=== PATIENT | male | born 2000 | race Caucasian/White ===

== ENCOUNTER 2019-09-30 06:00 | Outpatient (RCR) | payer MEDICARE, MEDICAID, SELFPAY | END 2019-10-30 00:01 | LOC: AOT 06:00 | PROVIDERS: Family Provider Pediatrics; Visit Provider Pediatrics Adolescent Medicine | DX: S06.9X0D Unspecified intracranial injury without loss of consciousness, subsequent encounter (principal); X58.XXXD Exposure to other specified factors, subsequent encounter | CPT/HCPCS: 97110 ×4; 97530 ×4 ==

== ENCOUNTER 2019-09-30 06:00 | Outpatient (RCR) | payer MEDICARE, MEDICAID, SELFPAY | END 2019-10-30 00:01 | LOC: APT 06:00 | PROVIDERS: Family Provider Pediatrics; Visit Provider Internal Medicine | DX: Z87.820 Personal history of traumatic brain injury (principal) | CPT/HCPCS: 97110 ×5 ==

== ENCOUNTER 2019-10-31 06:00 | Outpatient (RCR) | payer MEDICARE, MEDICAID, SELFPAY | END 2019-11-30 23:59 | disposition home or self-care (01) | LOC: APT 06:00 | PROVIDERS: Family Provider Pediatrics; PCP Pediatrics; Visit Provider Pediatrics | DX: G81.11 Spastic hemiplegia affecting right dominant side (principal) | CPT/HCPCS: 97110; 97530 ==

== ENCOUNTER 2019-10-31 06:58 | Outpatient (RCR) | payer MEDICARE, MEDICAID, SELFPAY | END 2019-11-30 23:59 | disposition home or self-care (01) | LOC: AOT 06:58 | PROVIDERS: Family Provider Pediatrics; PCP Pediatrics; Referring Provider Pediatrics; Visit Provider Pediatrics | DX: G81.11 Spastic hemiplegia affecting right dominant side (principal) | CPT/HCPCS: 97110; 97530 ==

== ENCOUNTER 2019-12-03 14:37 | Outpatient (RCR) | payer MEDICARE, MEDICAID, SELFPAY | END 2019-12-29 23:59 | disposition home or self-care (01) | LOC: AOT 14:37 | PROVIDERS: Family Provider Pediatrics; PCP Pediatrics; Referring Provider Pediatrics; Visit Provider Pediatrics | DX: G81.11 Spastic hemiplegia affecting right dominant side (principal) | CPT/HCPCS: 97110; 97168; 97530 ==

== ENCOUNTER 2019-12-03 14:42 | Outpatient (RCR) | payer MEDICARE, MEDICAID, SELFPAY | END 2019-12-29 23:59 | disposition home or self-care (01) | LOC: APT 14:42 | PROVIDERS: Family Provider Pediatrics; PCP Pediatrics; Visit Provider Pediatrics | DX: G81.11 Spastic hemiplegia affecting right dominant side (principal); Z87.820 Personal history of traumatic brain injury | CPT/HCPCS: 97110; 97164 ==

== ENCOUNTER 2019-12-30 06:00 | Outpatient (RCR) | payer MEDICARE, MEDICAID, SELFPAY | END 2020-01-29 23:59 | disposition home or self-care (01) | LOC: APT 06:00 | PROVIDERS: Family Provider Pediatrics; PCP Pediatrics; Visit Provider Pediatrics | DX: G81.11 Spastic hemiplegia affecting right dominant side (principal) | CPT/HCPCS: 97110 ==

== ENCOUNTER 2019-12-30 06:00 | Outpatient (RCR) | payer MEDICARE, MEDICAID, SELFPAY | END 2020-01-29 23:59 | disposition home or self-care (01) | LOC: AOT 06:00 | PROVIDERS: Family Provider Pediatrics; PCP Pediatrics; Referring Provider Pediatrics; Visit Provider Pediatrics | DX: G81.11 Spastic hemiplegia affecting right dominant side (principal) | CPT/HCPCS: 97110; 97530 ==

== ENCOUNTER 2020-01-30 06:00 | Outpatient (RCR) | payer MEDICARE, MEDICAID, SELFPAY | END 2020-02-28 23:59 | disposition home or self-care (01) | LOC: APT 06:00 | PROVIDERS: Family Provider Pediatrics; PCP Pediatrics; Visit Provider Pediatrics | DX: G81.11 Spastic hemiplegia affecting right dominant side (principal) | CPT/HCPCS: 97110 ==

== ENCOUNTER 2020-01-30 06:00 | Outpatient (RCR) | payer MEDICARE, MEDICAID, SELFPAY | END 2020-02-28 23:59 | disposition home or self-care (01) | LOC: AOT 06:00 | PROVIDERS: Family Provider Pediatrics; PCP Pediatrics; Referring Provider Pediatrics; Visit Provider Pediatrics | DX: G81.11 Spastic hemiplegia affecting right dominant side (principal) | CPT/HCPCS: 97530 ==

== ENCOUNTER 2020-02-29 06:00 | Outpatient (RCR) | payer MEDICARE, MEDICAID, SELFPAY | END 2020-03-30 23:59 | disposition home or self-care (01) | LOC: AOT 06:00 | PROVIDERS: Family Provider Pediatrics; PCP Pediatrics; Referring Provider Pediatrics; Visit Provider Pediatrics | DX: G81.11 Spastic hemiplegia affecting right dominant side (principal) | CPT/HCPCS: 97530 ==

== ENCOUNTER 2020-02-29 06:00 | Outpatient (RCR) | payer MEDICARE, MEDICAID, SELFPAY | END 2020-03-30 23:59 | disposition home or self-care (01) | LOC: APT 06:00 | PROVIDERS: Family Provider Pediatrics; PCP Pediatrics; Visit Provider Pediatrics | DX: G81.11 Spastic hemiplegia affecting right dominant side (principal) | CPT/HCPCS: 97110 ==

== ENCOUNTER 2020-03-31 06:00 | Outpatient (RCR) | payer MEDICARE, MEDICAID, SELFPAY | END 2020-04-29 23:59 | disposition home or self-care (01) | LOC: APT 06:00 | PROVIDERS: PCP Pediatrics; Visit Provider Pediatrics | DX: G81.11 Spastic hemiplegia affecting right dominant side (principal) | CPT/HCPCS: 97110 ==

== ENCOUNTER 2020-03-31 06:00 | Outpatient (RCR) | payer MEDICARE, MEDICAID, SELFPAY | END 2020-04-29 23:59 | disposition home or self-care (01) | LOC: AOT 06:00 | PROVIDERS: PCP Pediatrics; Visit Provider Pediatrics | DX: Z87.820 Personal history of traumatic brain injury (principal); G81.11 Spastic hemiplegia affecting right dominant side | CPT/HCPCS: 97110; 97530 ==

== ENCOUNTER 2020-04-30 | Outpatient (RCR) | payer MEDICARE, MEDICAID, SELFPAY | END 2020-05-30 23:59 | disposition home or self-care (01) | LOC: AOT | PROVIDERS: PCP Pediatrics; Visit Provider Pediatrics | DX: G81.11 Spastic hemiplegia affecting right dominant side (principal); Z87.820 Personal history of traumatic brain injury | CPT/HCPCS: 97110; 97530 ==

== ENCOUNTER 2020-04-30 00:47 | Outpatient (RCR) | payer MEDICARE, MEDICAID, SELFPAY | END 2020-05-30 23:59 | disposition home or self-care (01) | LOC: APT 00:47 | PROVIDERS: PCP Pediatrics; Visit Provider Pediatrics | DX: G81.11 Spastic hemiplegia affecting right dominant side (principal) | CPT/HCPCS: 97110 ==

== ENCOUNTER 2020-05-14 10:57 | Inpatient (IN) | payer MEDICARE, MEDICAID, SELFPAY ==
[2020-05-14 10:57] VITALS: BP 130/96; PULSE 102; RESP 18; O2SAT 100
[2020-05-14 10:58] VITALS: BMI 15.0
[2020-05-14 11:02] VITALS: BP 131/102; PULSE 122; RESP 20; TEMP 36.8; O2SAT 99
[2020-05-14 11:04] VITALS: BP 131/102; PULSE 120; RESP 18; O2SAT 99
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
[2020-05-14] MEDS: famotidine 20 mg/2 mL INJ 40 MG IVP (11:26)
[2020-05-14 11:31] LABS: Basophils % 0.2 %; Hematocrit 52.3 % (42.0-52.0); Hemoglobin 16.5 g/dL (11.7-16.6); Lymphocytes # 1.4 10^3/uL (0.8-4.8); Lymphocytes % 8.7 %; Mean Corpuscular HGB Conc 31.5 g/dL (30.0-36.0); Mean Corpuscular Hemoglobin 30.3 pg (28.0-34.0); Mean Corpuscular Volume 96.1 fL (80-94); Mean Platelet Volume 11.9 fL (7.4-10.4); Monocytes # 1.3 10^3/uL (0.2-0.9); Monocytes % 8.1 %; Neutrophils # 13.17 10^3/uL (1.8-7.7); Neutrophils % 82.6 %; Nucleated Red Blood Cells % 0 %; Platelet Count 226 10^3/cmm (130-400); Red Blood Count 5.44 10^6/uL (4.1-5.3); Red Cell Distribution Width 12.6 % (12.1-15.1); White Blood Count 15.9 10^3/uL (4.0-10.0)
[2020-05-14 11:47] LABS: Alanine Aminotransferase 15 U/L (0-41); Albumin Level 4.3 g/dL (3.5-5.2); Alkaline Phosphatase 80 IU/L (40-130); Anion Gap 14.9 (5-19); Aspartate Amino Transferase 13 U/L (0-40); Blood Urea Nitrogen 19 mg/dL (6-20); Calcium 8.9 mg/dL (8.5-10.5); Carbon Dioxide 28 mmol/L (22-29); Chloride 105 mmol/L (98-107); Globulin 2.9 g/dL (1.3-4.6); Glomerular Filtration Rate 209.9 mL/min (90-130); Glucose 133 mg/dL (65-115); Osmolality Calculated 296 mOsm/kg (285-295); Potassium 3.9 mmol/L (3.5-5.1); Sodium 144 mmol/L (136-145); Total Protein 7.2 g/dL (6.6-8.7)
[2020-05-14] MEDS: sodium chloride 0.9% 1,000 ML 999 ML IV (12:16)
[2020-05-14] MEDS: ondansetron 2 mg/ML SDV 2 mL 4 MG IVP ×2 (12:16→13:34)
[2020-05-14] MEDS: sucralfate 1 gm/10 mL Oral Liq UDC PO (13:19)
[2020-05-14] MEDS: sodium chloride 0.9% 1,000 ML 100 ML IV (14:35)
--- NOTE | 2020-05-14 14:57 | CTR_ITS ---
PROCEDURE INFORMATION: Exam: CT Abdomen And Pelvis Without Contrast Exam date and time: 05/14/2020 3:00 PM Age: 19 years old Clinical indication: Nausea and vomiting; Abdominal pain; Prior surgery; Surgery date: 6+ months; Surgery type: G-tube, spine; Additional info: Abdominal distention, intractable nausea and vomiting - PT has tbi TECHNIQUE: Imaging protocol: Computed tomography of the abdomen and pelvis without contrast. Radiation optimization: All CT scans at this facility use at least one of these dose optimization techniques: automated exposure control; mA and/or kV adjustment per patient size (includes targeted exams where dose is matched to clinical indication); or iterative reconstruction. COMPARISON: No relevant prior studies available. FINDINGS: Pleural space: Small pleural effusions. Patchy infiltrate or atelectasis left lung base. Liver: Normal. No mass. Gallbladder and bile ducts: Normal. No calcified stones. No ductal dilation. Pancreas: Normal. No ductal dilation. Spleen: Normal. No splenomegaly. Adrenals: Normal. No mass. Kidneys and ureters: Normal. No hydronephrosis. Stomach and bowel: Moderate amount of liquid in the stomach. Fluid containing loops of small bowel, nonspecific. Modest amount of stool in right colon and rectosigmoid region. No bowel dilatation or obstruction evident. Appendix: Normal small appendix. Intraperitoneal space: Unremarkable. No free air. No significant fluid collection. Vasculature: Unremarkable. No abdominal aortic aneurysm. Lymph nodes: Unremarkable. No enlarged lymph nodes. Bladder: Unremarkable as visualized. Reproductive: Unremarkable as visualized. Bones/joints: Broad thoracolumbar levoscoliosis with transpedicular screw and posterior mateusz fixation hardware in place. Some images degraded by streak artifacts arising from fixation hardware. Presumably chronically dislocated right hip. Soft tissues: Unremarkable. Other findings: Total DLP (mGy-cm): 577.94 CT/CT abdomen pelvis wo con [id number] IMPRESSION: 1.) Small pleural effusions. Patchy infiltrate or atelectasis left lung base. 2.) Moderate amount of liquid in the stomach. No bowel dilatation or obstruction evident. 3.) Prior spine surgery with fixation hardware in place. Radiation Dose CTDIVOL = (mGy): DLP = 577.94 (mGy-cm)
[2020-05-14 16:02] VITALS: BP 130/90; PULSE 82; RESP 16; TEMP 37.4; O2SAT 100
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
[2020-05-14] MEDS: pantoprazole 40 mg SDV IVP (16:53)
[2020-05-14] MEDS: enoxaparin 30 mg/0.3 mL Syringe SUBCUT (16:53)
[2020-05-14] MEDS: Fleet Enema 133 mL Enema PR (16:53)
[2020-05-14 17:11] VITALS: BP 130/98; PULSE 102; RESP 18; TEMP 37.2; O2SAT 98
[2020-05-14] MEDS: LORazepam 2 mg/mL INJ 1 mL 1 MG IVP (17:41)
--- NOTE | 2020-05-14 17:42 | PC.NURSE ---
patient spitting up black sputum. patient gets hiccups and then spits up. suction set up. teaching done with dad and dad is at bedside.
--- NOTE | 2020-05-14 18:26 | PC.NURSE ---
Signed consent in file for EGD
[2020-05-14 20:00] VITALS: BP 121/86; PULSE 100; RESP 18; TEMP 37.6; O2SAT 94
[2020-05-15] VITALS (13 sets, daily range): BP systolic 121–136; BP diastolic 57–94; PULSE 104–129; RESP 18–26; TEMP 36.9–37.9; O2SAT 90–99
[2020-05-15] MEDS: ondansetron 2 mg/ML SDV 2 mL 4 MG IVP (00:03)
[2020-05-15] MEDS: sodium chloride 0.9% 1,000 ML 30 ML IV ×2 (00:04→10:45)
[2020-05-15 03:32] LABS: Basophils % 0.2 %; Eosinophils % 0.3 %; Hematocrit 42.4 % (42.0-52.0); Hemoglobin 13.5 g/dL (11.7-16.6); Lymphocytes # 2.2 10^3/uL (0.8-4.8); Lymphocytes % 19.3 %; Mean Corpuscular HGB Conc 31.8 g/dL (30.0-36.0); Mean Corpuscular Volume 97.5 fL (80-94); Mean Platelet Volume 12.2 fL (7.4-10.4); Monocytes # 1.1 10^3/uL (0.2-0.9); Monocytes % 9.2 %; Neutrophils # 8.18 10^3/uL (1.8-7.7); Neutrophils % 70.7 %; Nucleated Red Blood Cells % 0 %; Platelet Count 254 10^3/cmm (130-400); Red Blood Count 4.35 10^6/uL (4.1-5.3); Red Cell Distribution Width 12.7 % (12.1-15.1); White Blood Count 11.6 10^3/uL (4.0-10.0)
[2020-05-15 03:35] LABS: Anion Gap 12.8 (5-19); Blood Urea Nitrogen 10 mg/dL (6-20); Calcium 8.1 mg/dL (8.5-10.5); Carbon Dioxide 26 mmol/L (22-29); Chloride 111 mmol/L (98-107); Glomerular Filtration Rate 378.5 mL/min (90-130); Glucose 113 mg/dL (65-115); Osmolality Calculated 299 mOsm/kg (285-295); Potassium 3.8 mmol/L (3.5-5.1); Sodium 146 mmol/L (136-145)
[2020-05-15] MEDS: pantoprazole 40 mg SDV IVP ×2 (05:03→15:32)
[2020-05-15] MEDS: LORazepam 2 mg/mL INJ 1 mL 1 MG IVP ×2 (08:43→17:57)
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
--- NOTE | 2020-05-15 09:47 | PM.CONSULT ---
Providers/Reason For Consult Consulting Physican/Specialty*: Dr. Davila Reason for Consult*: Coffee-ground emesis, melena Attending Physician: Jennifer Davila MD Primary Care Provider: Tasha Leyva MD History of Present Illness History of Present Illness Marvel Sharp is a 19 year old male, quadriplegic with seizure disorders who was brought in by his father for nausea vomiting and coffee-ground emesis for the last couple of days. Patient states that he has had similar episodes in the past and his last EGD was done at [facility] a few years ago when they found esophagitis. Patient does not appear to be any acute distress and denies any significant abdominal or chest pain. No melena or hematochezia. Review of Systems General: Reports: 10 or more systems reviewed and unremarkable except in HPI and below Meds/Allergies Home Medications and Allergies Home Medications Medication Instructions Recorded Confirmed Last Taken Type esomeprazole magnesium 40 mg PO BID 05/14/20 05/14/20 05/13/20 History lorazepam [Lorazepam Intensol] 2 mg PO Q6H PRN 05/14/20 05/14/20 05/13/20 History sucralfate [Carafate] See Rx Instructions .ROUTE .COMPLEX 05/14/20 05/14/20 05/13/20 History Allergies Allergy/AdvReac Type Severity Reaction Status Date / Time ibuprofen Allergy Unknown Verified 05/14/20 11:05 metoclopramide [From Reglan] Allergy Unknown Verified 05/14/20 11:05 Current Medications Current Medications Generic Name Dose Route Start Last Admin Trade Name Freq PRN Reason Stop Dose Admin Enoxaparin Sodium 30 mg 05/14/20 16:30 05/14/20 16:53 Lovenox SUBCUT 30 mg Q24H ARCENIO Administration Sodium Chloride 1,000 mls @ 30 mls/hr 05/14/20 18:00 05/15/20 00:04 Sodium Chloride 0.9% IV 30 mls/hr .Q24H ARCENIO Administration Sodium Chloride 1,000 mls @ 30 mls/hr 05/14/20 17:50 05/14/20 21:53 Sodium Chloride 0.9% IV 05/15/20 17:49 Not Given .Q24H ONE Lorazepam 1 mg 05/14/20 18:00 05/15/20 08:43 Ativan IVP 1 mg BID ARCENIO Administration Ondansetron HCl 4 mg 05/14/20 14:14 05/15/20 00:03 Zofran IVP 4 mg Q6H PRN Administration NAUSEA AND VOMITING Pantoprazole Sodium 40 mg 05/14/20 16:30 05/15/20 05:03 Protonix IVP 40 mg Q12H ARCENIO Administration Sucralfate 1 gm 05/14/20 17:00 05/15/20 06:54 Carafate Oral Liq PO Not Given AC&BEDTIME ARCENIO PFSH Acute PFSH: Medical History GERD (gastroesophageal reflux disease) Quadriplegia Seizure disorder Traumatic brain injury Surgical History History of back surgery History of gastrostomy tube placement History of tracheostomy Social History Smoking and tobacco status: never smoked Alcohol intake: never Substance/Drug Use: never Household members: family Vitals/I&O/Wt Last Vital Signs Temp 100.3 F H 05/15/20 07:37 Pulse 118 H 05/15/20 07:37 Resp 18 05/15/20 07:37 BP 129/81 05/15/20 07:37 Pulse Ox 93 05/15/20 07:37 05/14/20 05/15/20 05/15/20 22:59 06:59 14:59 Intake Total 735 / 735 Balance 735 / 735 Weight last 48 hrs Weight 116 lb 3 oz Weight 90 lb Physical Exam Narrative: EXAM NARRATIVE: HEENT: Normocephalic Eye: Sclera /conjunctiva normal Abdomen: Soft to palpation Neurological: Unable to assess Skin: Intact, no lesions appreciated on gross exam A&P Assessment and plan (1) GI bleed: 19-year-old male with quadriplegia seizure disorders who presents with coffee-ground emesis. Plan for EGD under [facility] Procedure, risks, benefits and alternatives have been discussed with the patient who wishes to proceed with surgery. Status: Acute Coding Level of Care Code Acute Manager Administration for [facility] Diagnoses GI bleed K92.2
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
[2020-05-15] MEDS: enoxaparin 30 mg/0.3 mL Syringe SUBCUT (15:32)
[2020-05-15] MEDS: nystatin 100,000 unit/mL UDC 5 mL 500000 UNIT PO (22:23)
[2020-05-16] VITALS (10 sets, daily range): BP systolic 102–128; BP diastolic 62–87; PULSE 87–114; RESP 16–18; TEMP 36.8–38.2; O2SAT 92–95
[2020-05-16] MEDS: ondansetron 2 mg/ML SDV 2 mL 4 MG IVP (03:55)
[2020-05-16] MEDS: pantoprazole 40 mg SDV IVP ×2 (03:55→16:20)
[2020-05-16 04:10] LABS: Hematocrit 38.1 % (42.0-52.0); Hemoglobin 12.1 g/dL (11.7-16.6)
[2020-05-16] MEDS: LORazepam 2 mg/mL INJ 1 mL 1 MG IVP ×2 (07:59→17:16)
[2020-05-16] MEDS: nystatin 100,000 unit/mL UDC 5 mL 500000 UNIT PO ×4 (07:59→20:52)
[2020-05-16] MEDS: sucralfate 1 gm/10 mL Oral Liq UDC PO ×4 (07:59→20:52)
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
[2020-05-16] MEDS: bisacodyl 10 mg Supp PR (09:33)
--- NOTE | 2020-05-16 10:18 | PC.CHAP ---
Pastoral Care Encounter/Spiritual Assessment Type of Contact [] Declined board machine set up operator visit [] Patient/Family/Request visit [] Outpatient visit [] Follow-up visit [] Physician referral [] Code/Alert [x] Routine visit [] Staff referral [] Actively dying [] Patient sleeping [x] Family support [] [] Out of room [] Palliative care [] [] Receiving care in room [] Pre-surgical visit [] Trauma [] Long length of stay [] ICU visit [] Other: Relational/Emotional Strength [] Patient feels connected with others/family/visitors/staff [] Distress [] Loneliness/isolation [] Abandonment Spirituality of Patient [] Person of [place] [] Attends [facility] of their [place] [] Believes in Prayer [] Reads Bible or Orthodoxy materials [] There are Spiritual issues to be addressed Laundry Bag Punch Operator Interventions [x] Prayer [x] Active listening [x] Non-anxious presence [x] Spiritual/emotional support [] Crisis/trauma care [] Spiritual counseling [] Bereavement support [] Provided bereavement packet [] Provided Bible/devotional materials [] Provided toy/stuffed animal, coloring book to patient or family member [] Provided Communion [] Anointing/[place] [] Salvation [x] Completed spiritual assessment [] Other: Impact on Illness or Injury [] Angry [] Fearful [] Anxious [] Often cries [] Exhaustion [] Unable to work [] Unable to attend jew [] Unable to walk/stand [] Unable to read [] Unable to drive [] Unable to eat/drink [] Unable to sleep [] Unable to be with family [] Patient intubated [] Other: Summary Patient handicapped. Laundry Bag Punch Operator prayed for father and son. Time spent with patient 5 min
--- NOTE | 2020-05-16 10:39 | ANE.PACU2 ---
Inpatient post-anesthesia follow up: Airway intact: Yes Vital signs: Temperature 98.7 F Pulse Rate 103 Respiratory Rate 16 Blood Pressure 124/87 Pulse Oximetry 93 Oxygen Delivery Me thod [Rate & Room Air Delivery Changed T o] Oxygen Delivery Me thod [ Room Air Current Rate & Del nash] Oxygen Delivery Me thod Room Air Oxygen Flow Rate [ Rate & 2 Delivery Changed T o] Oxygen Flow Rate 8 Fraction of Inspir ed Oxygen Hydration adequate: Yes Nausea and vomiting: No Mental status: Baseline
[2020-05-16] MEDS: enoxaparin 30 mg/0.3 mL Syringe SUBCUT (16:21)
[2020-05-17] MEDS: pantoprazole 40 mg SDV IVP (03:23)
[2020-05-17 04:00] VITALS: BP 108/73; PULSE 92; RESP 17; TEMP 37.6; O2SAT 93
[2020-05-17 07:11] VITALS: BP 123/74; PULSE 78; RESP 18; TEMP 37.9; O2SAT 94
[2020-05-17] MEDS: nystatin 100,000 unit/mL UDC 5 mL 500000 UNIT PO (09:06)
[2020-05-17] MEDS: sucralfate 1 gm/10 mL Oral Liq UDC PO (09:06)
[2020-05-17] MEDS: LORazepam 2 mg/mL INJ 1 mL 1 MG IVP (09:07)
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
[2020-05-17 12:00] VITALS: BP 118/70; PULSE 83; RESP 18; TEMP 37.3; O2SAT 94
[2020-05-17 13:58] VITALS: BP 118/70; PULSE 83; RESP 18; TEMP 37.3; O2SAT 94
--- NOTE | 2020-05-24 07:24 | SUR.PREOP ---
patient was in station #[id number].
== END 2020-05-17 14:00 | disposition home or self-care (01) | DRG 391 ==
LOC: ER 13:35 → MEDSURG 14:44
PROVIDERS: Emergency Medicine; Surgery; Admitting Provider Family Medicine; PCP Internal Medicine; Visit Provider Family Medicine
PROC: 0DJ08ZZ Inspection of Upper Intestinal Tract, Via Natural or Artificial Opening Endoscopic (ICD-10-PCS; CPT 43235; 2020-05-15 10:40)
DX: K20.9 Esophagitis, unspecified (principal); G82.50 Quadriplegia, unspecified; K92.2 Gastrointestinal hemorrhage, unspecified; K92.0 Hematemesis; G40.909 Epilepsy, unspecified, not intractable, without status epilepticus; Z87.820 Personal history of traumatic brain injury
CPT/HCPCS: 12345; 36415; 43235; 74176; 80048; 80053; 85014; 85018; 85025; 96372; 96375; 99283; C9113; G0378; J1650; J2060; J2405; J2704; J3490; J7030

== ENCOUNTER 2020-05-31 06:00 | Outpatient (RCR) | payer MEDICARE, MEDICAID, SELFPAY | END 2020-06-30 23:59 | disposition home or self-care (01) | LOC: APT 06:00 | PROVIDERS: PCP Internal Medicine; Visit Provider Internal Medicine | DX: G81.11 Spastic hemiplegia affecting right dominant side (principal) | CPT/HCPCS: 97110 ==

== ENCOUNTER 2020-05-31 06:00 | Outpatient (RCR) | payer MEDICARE, MEDICAID, SELFPAY | END 2020-06-30 23:59 | disposition home or self-care (01) | LOC: AOT 06:00 | PROVIDERS: PCP Internal Medicine; Visit Provider Pediatrics | DX: G81.11 Spastic hemiplegia affecting right dominant side (principal) | CPT/HCPCS: 97110; 97530 ==

== ENCOUNTER 2020-07-01 06:00 | Outpatient (RCR) | payer MEDICARE, MEDICAID, SELFPAY | END 2020-07-30 23:59 | disposition home or self-care (01) | LOC: AOT 06:00 | PROVIDERS: PCP Internal Medicine; Visit Provider Pediatrics | DX: G81.11 Spastic hemiplegia affecting right dominant side (principal) | CPT/HCPCS: 97110; 97530 ==

== ENCOUNTER 2020-07-01 06:00 | Outpatient (RCR) | payer MEDICARE, MEDICAID, SELFPAY | END 2020-07-30 23:59 | disposition home or self-care (01) | LOC: APT 06:00 | PROVIDERS: PCP Internal Medicine; Visit Provider Internal Medicine | DX: G81.11 Spastic hemiplegia affecting right dominant side (principal) | CPT/HCPCS: 97110 ==

== ENCOUNTER → 2020-07-17 12:28 | Outpatient (BNVA) | payer MEDICARE, MEDICAID, SELFPAY | PROVIDERS: PCP Internal Medicine; Referring Provider Internal Medicine; Visit Provider Specialist | DX: G81.11 Spastic hemiplegia affecting right dominant side (principal); F06.8 Other specified mental disorders due to known physiological condition; F01.51 Vascular dementia, unspecified severity, with behavioral disturbance | CPT/HCPCS: 64644; 99204; J0585 ==

== ENCOUNTER 2020-07-31 06:00 | Outpatient (RCR) | payer MEDICARE, MEDICAID, SELFPAY | END 2020-08-30 23:59 | disposition home or self-care (01) | LOC: APT 06:00 | PROVIDERS: PCP Internal Medicine; Visit Provider Internal Medicine | DX: G81.11 Spastic hemiplegia affecting right dominant side (principal) | CPT/HCPCS: 97110 ==

== ENCOUNTER 2020-07-31 06:00 | Outpatient (RCR) | payer MEDICARE, MEDICAID, SELFPAY | END 2020-08-30 23:59 | disposition home or self-care (01) | LOC: AOT 06:00 | PROVIDERS: PCP Internal Medicine; Visit Provider Internal Medicine | DX: G81.11 Spastic hemiplegia affecting right dominant side (principal) | CPT/HCPCS: 97110; 97530 ==

== ENCOUNTER 2020-08-31 06:00 | Outpatient (RCR) | payer MEDICARE, MEDICAID, SELFPAY | END 2020-09-29 23:59 | disposition home or self-care (01) | LOC: APT 06:00 | PROVIDERS: PCP Internal Medicine; Visit Provider Internal Medicine | DX: G81.11 Spastic hemiplegia affecting right dominant side (principal) | CPT/HCPCS: 97110 ==

== ENCOUNTER 2020-08-31 06:00 | Outpatient (RCR) | payer MEDICARE, MEDICAID, SELFPAY | END 2020-09-29 23:59 | disposition home or self-care (01) | LOC: AOT 06:00 | PROVIDERS: PCP Internal Medicine; Visit Provider Internal Medicine | DX: G81.11 Spastic hemiplegia affecting right dominant side (principal) | CPT/HCPCS: 97110; 97530 ==

== ENCOUNTER 2020-09-30 06:00 | Outpatient (RCR) | payer MEDICARE, MEDICAID, SELFPAY | END 2020-10-30 23:59 | disposition home or self-care (01) | LOC: AOT 06:00 | PROVIDERS: PCP Internal Medicine; Visit Provider Internal Medicine | DX: G81.11 Spastic hemiplegia affecting right dominant side (principal) | CPT/HCPCS: 97110; 97530 ==

== ENCOUNTER 2020-09-30 06:00 | Outpatient (RCR) | payer MEDICARE, MEDICAID, SELFPAY | END 2020-10-30 23:59 | disposition home or self-care (01) | LOC: APT 06:00 | PROVIDERS: PCP Internal Medicine; Visit Provider Internal Medicine | DX: G81.11 Spastic hemiplegia affecting right dominant side (principal) | CPT/HCPCS: 97110; 97164 ==

== ENCOUNTER → 2020-10-09 12:08 | Outpatient (BNVA) | payer MEDICARE, MEDICAID, SELFPAY | PROVIDERS: PCP Internal Medicine; Visit Provider Specialist | DX: G81.11 Spastic hemiplegia affecting right dominant side (principal); S06.9X9S Unspecified intracranial injury with loss of consciousness of unspecified duration, sequela; Y93.9 Activity, unspecified; F01.51 Vascular dementia, unspecified severity, with behavioral disturbance | CPT/HCPCS: 64642; 64643; J0585 ==

== ENCOUNTER 2020-10-31 06:00 | Outpatient (RCR) | payer MEDICARE, MEDICAID, SELFPAY | END 2020-11-30 23:59 | disposition home or self-care (01) | LOC: AOT 06:00 | PROVIDERS: PCP Internal Medicine; Visit Provider Internal Medicine | DX: Z87.820 Personal history of traumatic brain injury (principal) | CPT/HCPCS: 97110; 97530 ==

== ENCOUNTER 2020-11-03 09:38 | Outpatient (RCR) | payer MEDICARE, MEDICAID, SELFPAY | END 2020-11-30 23:59 | disposition home or self-care (01) | LOC: APT 09:38 | PROVIDERS: PCP Internal Medicine; Visit Provider Internal Medicine | DX: G81.11 Spastic hemiplegia affecting right dominant side (principal) | CPT/HCPCS: 97110 ==

== ENCOUNTER 2020-12-01 06:00 | Outpatient (RCR) | payer MEDICARE, MEDICAID, SELFPAY | END 2020-12-28 23:59 | disposition home or self-care (01) | LOC: AOT 06:00 | PROVIDERS: PCP Internal Medicine; Visit Provider Internal Medicine | DX: Z87.820 Personal history of traumatic brain injury (principal) | CPT/HCPCS: 97110; 97168; 97530 ==

== ENCOUNTER 2020-12-01 06:00 | Outpatient (RCR) | payer MEDICARE, MEDICAID, SELFPAY | END 2020-12-28 23:59 | disposition home or self-care (01) | LOC: APT 06:00 | PROVIDERS: PCP Internal Medicine; Visit Provider Internal Medicine | DX: G81.11 Spastic hemiplegia affecting right dominant side (principal) | CPT/HCPCS: 97110 ==

== ENCOUNTER 2020-12-29 06:00 | Outpatient (RCR) | payer MEDICARE, MEDICAID, SELFPAY | END 2021-01-28 23:59 | disposition home or self-care (01) | LOC: APT 06:00 | PROVIDERS: PCP Internal Medicine; Visit Provider Internal Medicine | DX: G81.11 Spastic hemiplegia affecting right dominant side (principal) | CPT/HCPCS: 97110 ==

== ENCOUNTER 2020-12-29 06:00 | Outpatient (RCR) | payer MEDICARE, MEDICAID, SELFPAY | END 2021-01-28 23:59 | disposition home or self-care (01) | LOC: AOT 06:00 | PROVIDERS: PCP Internal Medicine; Visit Provider Internal Medicine | DX: G81.11 Spastic hemiplegia affecting right dominant side (principal); S06.9X0S Unspecified intracranial injury without loss of consciousness, sequela; X58.XXXS Exposure to other specified factors, sequela | CPT/HCPCS: 97110; 97530 ==

== ENCOUNTER → 2021-01-08 09:53 | Outpatient (BNVA) | payer MEDICARE, MEDICAID, SELFPAY | PROVIDERS: PCP Internal Medicine; Visit Provider Specialist | DX: G81.11 Spastic hemiplegia affecting right dominant side (principal); S06.9X9S Unspecified intracranial injury with loss of consciousness of unspecified duration, sequela; F01.51 Vascular dementia, unspecified severity, with behavioral disturbance; Y93.9 Activity, unspecified | CPT/HCPCS: 64643; 64644; J0585 ==

== ENCOUNTER 2021-01-27 12:13 | Outpatient (CLI) | payer MEDICARE, MEDICAID, SELFPAY ==
--- NOTE | 2021-01-27 12:29 | XRR_ITS ---
PROCEDURE INFORMATION: Exam: XR Chest Exam date and time: 01/27/2021 12:31 PM Age: 20 years old Clinical indication: Cough and fever TECHNIQUE: Imaging protocol: XR of the chest Views: 2 views. COMPARISON: No relevant prior studies available. FINDINGS: Lungs: Low lung volumes are seen.. No consolidation. Pleural spaces: Unremarkable. No pleural effusion. No pneumothorax. Heart/Mediastinum: Unremarkable. No cardiomegaly. Bones/joints: Generalized osteopenia is seen. There is metallic transpedicular screws and rods throughout the dorsal and lumbar spine. XR/XR chest 2V* [id number] IMPRESSION: 1. Low lung volumes. 2. The lungs are otherwise clear. 3. Metallic orthopedic hardware seen in the dorsal and lumbar spine 4. Generalized osteopenia in the dorsal and lumbar spine.
== END 2021-01-27 12:14 | disposition home or self-care (01) ==
PROVIDERS: PCP Internal Medicine; Visit Provider Nurse Practitioner Family
DX: R50.9 Fever, unspecified (principal); R05 Cough; M85.88 Other specified disorders of bone density and structure, other site
CPT/HCPCS: 71046; 87086

== ENCOUNTER 2021-01-29 06:00 | Outpatient (RCR) | payer MEDICARE, MEDICAID, SELFPAY | END 2021-02-27 23:59 | disposition home or self-care (01) | LOC: AOT 06:00 | PROVIDERS: PCP Internal Medicine; Visit Provider Internal Medicine | DX: Z87.820 Personal history of traumatic brain injury (principal) | CPT/HCPCS: 97110; 97530 ==

== ENCOUNTER 2021-01-29 06:00 | Outpatient (RCR) | payer MEDICARE, MEDICAID, SELFPAY | END 2021-02-27 23:59 | disposition home or self-care (01) | LOC: APT 06:00 | PROVIDERS: PCP Internal Medicine; Visit Provider Internal Medicine | DX: G81.11 Spastic hemiplegia affecting right dominant side (principal) | CPT/HCPCS: 97110 ==

== ENCOUNTER 2021-02-28 06:00 | Outpatient (RCR) | payer MEDICARE, MEDICAID, SELFPAY | END 2021-03-30 23:59 | disposition home or self-care (01) | LOC: AOT 06:00 | PROVIDERS: PCP Internal Medicine; Visit Provider Internal Medicine | DX: G81.11 Spastic hemiplegia affecting right dominant side (principal) | CPT/HCPCS: 97110; 97530 ==

== ENCOUNTER 2021-02-28 06:00 | Outpatient (RCR) | payer MEDICARE, MEDICAID, SELFPAY | END 2021-03-30 23:59 | disposition home or self-care (01) | LOC: APT 06:00 | PROVIDERS: PCP Internal Medicine; Visit Provider Internal Medicine | DX: G81.11 Spastic hemiplegia affecting right dominant side (principal) | CPT/HCPCS: 97110 ==

== ENCOUNTER 2021-03-31 06:00 | Outpatient (RCR) | payer MEDICARE, MEDICAID, SELFPAY | END 2021-04-29 23:59 | disposition home or self-care (01) | LOC: AOT 06:00 | PROVIDERS: PCP Internal Medicine; Visit Provider Internal Medicine | DX: G81.11 Spastic hemiplegia affecting right dominant side (principal); Z87.820 Personal history of traumatic brain injury | CPT/HCPCS: 97110; 97140; 97530 ==

== ENCOUNTER 2021-03-31 06:00 | Outpatient (RCR) | payer MEDICARE, MEDICAID, SELFPAY | END 2021-04-29 23:59 | disposition home or self-care (01) | LOC: APT 06:00 | PROVIDERS: PCP Internal Medicine; Visit Provider Internal Medicine | DX: G81.11 Spastic hemiplegia affecting right dominant side (principal) | CPT/HCPCS: 97110 ==

== ENCOUNTER → 2021-04-02 10:08 | Outpatient (BNVA) | payer MEDICARE, MEDICAID, SELFPAY | PROVIDERS: PCP Internal Medicine; Visit Provider Specialist | DX: S06.9X9S Unspecified intracranial injury with loss of consciousness of unspecified duration, sequela (principal); Y93.9 Activity, unspecified; G81.11 Spastic hemiplegia affecting right dominant side; F01.51 Vascular dementia, unspecified severity, with behavioral disturbance; G40.309 Generalized idiopathic epilepsy and epileptic syndromes, not intractable, without status epilepticus | CPT/HCPCS: 64642; 99214; J0585 ==

== ENCOUNTER 2021-04-30 06:00 | Outpatient (RCR) | payer MEDICARE, MEDICAID, SELFPAY | END 2021-05-30 23:59 | disposition home or self-care (01) | LOC: APT 06:00 | PROVIDERS: PCP Internal Medicine; Visit Provider Internal Medicine | DX: G81.11 Spastic hemiplegia affecting right dominant side (principal) | CPT/HCPCS: 97110 ==

== ENCOUNTER 2021-04-30 06:00 | Outpatient (RCR) | payer MEDICARE, MEDICAID, SELFPAY | END 2021-05-30 23:59 | disposition home or self-care (01) | LOC: AOT 06:00 | PROVIDERS: PCP Internal Medicine; Visit Provider Internal Medicine | DX: G81.11 Spastic hemiplegia affecting right dominant side (principal); Z87.820 Personal history of traumatic brain injury | CPT/HCPCS: 97110; 97530 ==

== ENCOUNTER 2021-05-31 06:00 | Outpatient (RCR) | payer MEDICARE, MEDICAID, SELFPAY | END 2021-06-30 23:59 | disposition home or self-care (01) | LOC: APT 06:00 | PROVIDERS: PCP Internal Medicine; Visit Provider Internal Medicine | DX: G81.11 Spastic hemiplegia affecting right dominant side (principal) | CPT/HCPCS: 97110 ==

== ENCOUNTER 2021-05-31 06:00 | Outpatient (RCR) | payer MEDICARE, MEDICAID, SELFPAY | END 2021-06-30 23:59 | disposition home or self-care (01) | LOC: AOT 06:00 | PROVIDERS: PCP Internal Medicine; Visit Provider Internal Medicine | DX: G81.11 Spastic hemiplegia affecting right dominant side (principal) | CPT/HCPCS: 97110; 97530 ==

== ENCOUNTER 2021-07-01 06:00 | Outpatient (RCR) | payer MEDICARE, MEDICAID, SELFPAY | END 2021-07-30 23:59 | disposition home or self-care (01) | LOC: APT 06:00 | PROVIDERS: PCP Internal Medicine; Visit Provider Internal Medicine | DX: G81.11 Spastic hemiplegia affecting right dominant side (principal) | CPT/HCPCS: 97110 ==

== ENCOUNTER 2021-07-01 06:00 | Outpatient (RCR) | payer MEDICARE, MEDICAID, SELFPAY | END 2021-07-30 23:59 | disposition home or self-care (01) | LOC: AOT 06:00 | PROVIDERS: PCP Internal Medicine; Visit Provider Internal Medicine | DX: G81.11 Spastic hemiplegia affecting right dominant side (principal) | CPT/HCPCS: 97110; 97530 ==

== ENCOUNTER → 2021-07-02 08:52 | Outpatient (BNVA) | payer MEDICARE, MEDICAID, SELFPAY | PROVIDERS: PCP Internal Medicine; Visit Provider Specialist | DX: G81.11 Spastic hemiplegia affecting right dominant side (principal); S06.9X9S Unspecified intracranial injury with loss of consciousness of unspecified duration, sequela; F01.51 Vascular dementia, unspecified severity, with behavioral disturbance | CPT/HCPCS: 64644; J0585 ==

== ENCOUNTER 2021-07-31 06:00 | Outpatient (RCR) | payer MEDICARE, MEDICAID, SELFPAY | END 2021-08-30 23:59 | disposition home or self-care (01) | LOC: AOT 06:00 | PROVIDERS: PCP Internal Medicine; Visit Provider Internal Medicine | DX: G81.11 Spastic hemiplegia affecting right dominant side (principal) | CPT/HCPCS: 97110; 97530 ==

== ENCOUNTER 2021-07-31 06:00 | Outpatient (RCR) | payer MEDICARE, MEDICAID, SELFPAY | END 2021-08-30 23:59 | disposition home or self-care (01) | LOC: APT 06:00 | PROVIDERS: PCP Internal Medicine; Visit Provider Internal Medicine | DX: G81.11 Spastic hemiplegia affecting right dominant side (principal) | CPT/HCPCS: 97110 ==

== ENCOUNTER 2021-08-31 06:00 | Outpatient (RCR) | payer MEDICARE, MEDICAID, SELFPAY | END 2021-09-29 23:59 | disposition home or self-care (01) | LOC: AOT 06:00 | PROVIDERS: PCP Internal Medicine; Visit Provider Internal Medicine | DX: Z87.820 Personal history of traumatic brain injury (principal) | CPT/HCPCS: 97110; 97530 ==

== ENCOUNTER 2021-08-31 06:00 | Outpatient (RCR) | payer MEDICARE, MEDICAID, SELFPAY | END 2021-09-29 23:59 | disposition home or self-care (01) | LOC: APT 06:00 | PROVIDERS: PCP Internal Medicine; Visit Provider Internal Medicine | DX: G81.11 Spastic hemiplegia affecting right dominant side (principal) | CPT/HCPCS: 97110 ==

== ENCOUNTER 2021-09-30 06:00 | Outpatient (RCR) | payer MEDICARE, MEDICAID, SELFPAY | END 2021-10-30 23:59 | disposition home or self-care (01) | LOC: AOT 06:00 | PROVIDERS: PCP Internal Medicine; Visit Provider Internal Medicine | DX: G81.11 Spastic hemiplegia affecting right dominant side (principal) | CPT/HCPCS: 97110; 97530 ==

== ENCOUNTER 2021-09-30 06:00 | Outpatient (RCR) | payer MEDICARE, MEDICAID, SELFPAY | END 2021-10-30 23:59 | disposition home or self-care (01) | LOC: APT 06:00 | PROVIDERS: PCP Internal Medicine; Visit Provider Internal Medicine | DX: G81.11 Spastic hemiplegia affecting right dominant side (principal) | CPT/HCPCS: 97110 ==

== ENCOUNTER → 2021-10-08 09:10 | Outpatient (BNVA) | payer MEDICARE, MEDICAID, SELFPAY | PROVIDERS: PCP Internal Medicine; Visit Provider Specialist | DX: G81.11 Spastic hemiplegia affecting right dominant side (principal); G40.309 Generalized idiopathic epilepsy and epileptic syndromes, not intractable, without status epilepticus; S06.9X9S Unspecified intracranial injury with loss of consciousness of unspecified duration, sequela; F01.51 Vascular dementia, unspecified severity, with behavioral disturbance | CPT/HCPCS: 64644; 99213; J0585 ==

== ENCOUNTER 2021-10-31 06:00 | Outpatient (RCR) | payer MEDICARE, MEDICAID, SELFPAY | END 2021-11-30 23:59 | disposition home or self-care (01) | LOC: AOT 06:00 | PROVIDERS: PCP Internal Medicine; Visit Provider Internal Medicine | DX: S06.9X0D Unspecified intracranial injury without loss of consciousness, subsequent encounter (principal) | CPT/HCPCS: 97110; 97530 ==

== ENCOUNTER 2021-10-31 06:00 | Outpatient (RCR) | payer MEDICARE, MEDICAID, SELFPAY | END 2021-11-30 23:59 | disposition home or self-care (01) | LOC: APT 06:00 | PROVIDERS: PCP Internal Medicine; Visit Provider Internal Medicine | DX: G81.11 Spastic hemiplegia affecting right dominant side (principal) | CPT/HCPCS: 97110 ==

== ENCOUNTER 2021-12-01 06:00 | Outpatient (RCR) | payer MEDICARE, MEDICAID, SELFPAY | END 2021-12-28 23:59 | disposition home or self-care (01) | LOC: AOT 06:00 | PROVIDERS: PCP Internal Medicine; Visit Provider Internal Medicine | DX: S06.9X0S Unspecified intracranial injury without loss of consciousness, sequela (principal) | CPT/HCPCS: 97110; 97168; 97530 ==

== ENCOUNTER 2021-12-01 06:00 | Outpatient (RCR) | payer MEDICARE, MEDICAID, SELFPAY | END 2021-12-28 23:59 | disposition home or self-care (01) | LOC: APT 06:00 | PROVIDERS: PCP Internal Medicine; Visit Provider Internal Medicine | DX: G81.11 Spastic hemiplegia affecting right dominant side (principal) | CPT/HCPCS: 97110 ==

== ENCOUNTER 2021-12-29 06:00 | Outpatient (RCR) | payer MEDICARE, MEDICAID, SELFPAY | END 2022-01-28 23:59 | disposition home or self-care (01) | LOC: AOT 06:00 | PROVIDERS: PCP Internal Medicine; Visit Provider Internal Medicine | DX: S06.9X0S Unspecified intracranial injury without loss of consciousness, sequela (principal); X58.XXXS Exposure to other specified factors, sequela | CPT/HCPCS: 97110; 97530 ==

== ENCOUNTER 2021-12-29 06:00 | Outpatient (RCR) | payer MEDICARE, MEDICAID, SELFPAY | END 2022-01-28 23:59 | disposition home or self-care (01) | LOC: APT 06:00 | PROVIDERS: PCP Internal Medicine; Visit Provider Internal Medicine | DX: Z87.820 Personal history of traumatic brain injury (principal) | CPT/HCPCS: 97110 ==

== ENCOUNTER → 2021-12-31 11:00 | Outpatient (BNVA) | payer MEDICARE, MEDICAID, SELFPAY | PROVIDERS: PCP Internal Medicine; Visit Provider Specialist | DX: G81.11 Spastic hemiplegia affecting right dominant side (principal); S06.9X9S Unspecified intracranial injury with loss of consciousness of unspecified duration, sequela; F01.51 Vascular dementia, unspecified severity, with behavioral disturbance; Y93.9 Activity, unspecified | CPT/HCPCS: 64642; 64644; J0585 ==

== ENCOUNTER 2022-01-29 06:00 | Outpatient (RCR) | payer MEDICARE, MEDICAID, SELFPAY | END 2022-02-27 23:59 | disposition home or self-care (01) | LOC: AOT 06:00 | PROVIDERS: PCP Internal Medicine; Visit Provider Internal Medicine | DX: G81.11 Spastic hemiplegia affecting right dominant side (principal) | CPT/HCPCS: 97110; 97530 ==

== ENCOUNTER 2022-01-29 06:00 | Outpatient (RCR) | payer MEDICARE, MEDICAID, SELFPAY | END 2022-02-27 23:59 | disposition home or self-care (01) | LOC: APT 06:00 | PROVIDERS: PCP Internal Medicine; Visit Provider Internal Medicine | DX: G81.11 Spastic hemiplegia affecting right dominant side (principal) | CPT/HCPCS: 97110; 97530 ==

== ENCOUNTER 2022-02-28 06:00 | Outpatient (RCR) | payer MEDICARE, MEDICAID, SELFPAY | END 2022-03-30 23:59 | disposition home or self-care (01) | LOC: APT 06:00 | PROVIDERS: PCP Internal Medicine; Visit Provider Internal Medicine | DX: G81.11 Spastic hemiplegia affecting right dominant side (principal) | CPT/HCPCS: 97110 ==

== ENCOUNTER 2022-02-28 06:00 | Outpatient (RCR) | payer MEDICARE, MEDICAID, SELFPAY | END 2022-03-30 23:59 | disposition home or self-care (01) | LOC: AOT 06:00 | PROVIDERS: PCP Internal Medicine; Visit Provider Internal Medicine | DX: G81.11 Spastic hemiplegia affecting right dominant side (principal) | CPT/HCPCS: 97110; 97530 ==

== ENCOUNTER 2022-03-31 06:00 | Outpatient (RCR) | payer MEDICARE, MEDICAID, SELFPAY | END 2022-04-29 23:59 | disposition home or self-care (01) | LOC: APT 06:00 | PROVIDERS: PCP Internal Medicine; Visit Provider Internal Medicine | DX: G81.11 Spastic hemiplegia affecting right dominant side (principal) | CPT/HCPCS: 97110 ==

== ENCOUNTER 2022-03-31 06:00 | Outpatient (RCR) | payer MEDICARE, MEDICAID, SELFPAY | END 2022-04-29 23:59 | disposition home or self-care (01) | LOC: AOT 06:00 | PROVIDERS: PCP Internal Medicine; Visit Provider Internal Medicine | DX: Z87.820 Personal history of traumatic brain injury (principal) | CPT/HCPCS: 97110; 97530 ==

== ENCOUNTER → 2022-04-15 14:04 | Outpatient (BNVA) | payer MEDICARE, MEDICAID, SELFPAY | PROVIDERS: PCP Internal Medicine; Visit Provider Specialist | DX: G81.11 Spastic hemiplegia affecting right dominant side (principal); S06.9X9S Unspecified intracranial injury with loss of consciousness of unspecified duration, sequela; V89.2XXS Person injured in unspecified motor-vehicle accident, traffic, sequela | CPT/HCPCS: 64642; 64643; J0585 ==

== ENCOUNTER 2022-04-30 06:00 | Outpatient (RCR) | payer MEDICARE, MEDICAID, SELFPAY | END 2022-05-30 23:59 | disposition home or self-care (01) | LOC: APT 06:00 | PROVIDERS: PCP Internal Medicine; Visit Provider Internal Medicine | DX: G81.11 Spastic hemiplegia affecting right dominant side (principal) | CPT/HCPCS: 97110 ==

== ENCOUNTER 2022-04-30 06:00 | Outpatient (RCR) | payer MEDICARE, MEDICAID, SELFPAY | END 2022-05-30 23:59 | disposition home or self-care (01) | LOC: AOT 06:00 | PROVIDERS: PCP Internal Medicine; Visit Provider Internal Medicine | DX: Z87.820 Personal history of traumatic brain injury (principal); G81.11 Spastic hemiplegia affecting right dominant side | CPT/HCPCS: 97110; 97530 ==

== ENCOUNTER 2022-05-31 06:00 | Outpatient (RCR) | payer MEDICARE, MEDICAID, SELFPAY | END 2022-06-30 23:59 | disposition home or self-care (01) | LOC: AOT 06:00 | PROVIDERS: PCP Internal Medicine; Referring Provider Internal Medicine; Visit Provider Internal Medicine | DX: G81.11 Spastic hemiplegia affecting right dominant side (principal) | CPT/HCPCS: 97110; 97530 ==

== ENCOUNTER 2022-05-31 06:00 | Outpatient (RCR) | payer MEDICARE, MEDICAID, SELFPAY | END 2022-06-30 23:59 | disposition home or self-care (01) | LOC: APT 06:00 | PROVIDERS: PCP Internal Medicine; Referring Provider Internal Medicine; Visit Provider Internal Medicine | DX: G81.11 Spastic hemiplegia affecting right dominant side (principal) | CPT/HCPCS: 97110 ==

== ENCOUNTER 2022-07-01 06:00 | Outpatient (RCR) | payer MEDICARE, MEDICAID, SELFPAY | END 2022-07-30 23:59 | disposition home or self-care (01) | LOC: APT 06:00 | PROVIDERS: PCP Internal Medicine; Visit Provider Internal Medicine | DX: G81.11 Spastic hemiplegia affecting right dominant side (principal) | CPT/HCPCS: 97110 ==

== ENCOUNTER 2022-07-01 06:00 | Outpatient (RCR) | payer MEDICARE, MEDICAID, SELFPAY | END 2022-07-30 23:59 | disposition home or self-care (01) | LOC: AOT 06:00 | PROVIDERS: PCP Internal Medicine; Visit Provider Internal Medicine | DX: G81.11 Spastic hemiplegia affecting right dominant side (principal) | CPT/HCPCS: 97110; 97530 ==

== ENCOUNTER → 2022-07-22 15:01 | Outpatient (BNVA) | payer MEDICARE, MEDICAID, SELFPAY | PROVIDERS: PCP Internal Medicine; Visit Provider Specialist | DX: G81.11 Spastic hemiplegia affecting right dominant side (principal); F06.8 Other specified mental disorders due to known physiological condition; S06.9X0S Unspecified intracranial injury without loss of consciousness, sequela; V89.2XXS Person injured in unspecified motor-vehicle accident, traffic, sequela | CPT/HCPCS: 64642; 64643; 64644; J0585 ==

== ENCOUNTER 2022-07-31 06:00 | Outpatient (RCR) | payer MEDICARE, MEDICAID, SELFPAY | END 2022-08-30 23:59 | disposition home or self-care (01) | LOC: APT 06:00 | PROVIDERS: PCP Internal Medicine; Visit Provider Internal Medicine | DX: G81.11 Spastic hemiplegia affecting right dominant side (principal) | CPT/HCPCS: 97110 ==

== ENCOUNTER 2022-07-31 06:00 | Outpatient (RCR) | payer MEDICARE, MEDICAID, SELFPAY | END 2022-08-30 23:59 | disposition home or self-care (01) | LOC: AOT 06:00 | PROVIDERS: PCP Internal Medicine; Visit Provider Internal Medicine | DX: G81.11 Spastic hemiplegia affecting right dominant side (principal) | CPT/HCPCS: 97110; 97530 ==

== ENCOUNTER 2022-08-31 06:00 | Outpatient (RCR) | payer MEDICARE, MEDICAID, SELFPAY | END 2022-09-29 23:59 | disposition home or self-care (01) | LOC: APT 06:00 | PROVIDERS: PCP Internal Medicine; Visit Provider Internal Medicine | DX: G81.11 Spastic hemiplegia affecting right dominant side (principal); Z87.820 Personal history of traumatic brain injury | CPT/HCPCS: 97110 ==

== ENCOUNTER 2022-08-31 06:00 | Outpatient (RCR) | payer MEDICARE, MEDICAID, SELFPAY | END 2022-09-29 23:59 | disposition home or self-care (01) | LOC: AOT 06:00 | PROVIDERS: PCP Internal Medicine; Visit Provider Internal Medicine | DX: G81.11 Spastic hemiplegia affecting right dominant side (principal); S06.9XAD Unspecified intracranial injury with loss of consciousness status unknown, subsequent encounter; X58.XXXD Exposure to other specified factors, subsequent encounter | CPT/HCPCS: 97110; 97530 ==

== ENCOUNTER 2022-09-30 06:00 | Outpatient (RCR) | payer MEDICARE, MEDICAID, SELFPAY | END 2022-10-30 23:59 | disposition home or self-care (01) | LOC: APT 06:00 | PROVIDERS: PCP Internal Medicine; Visit Provider Internal Medicine | DX: G81.11 Spastic hemiplegia affecting right dominant side (principal) | CPT/HCPCS: 97110 ==

== ENCOUNTER 2022-09-30 06:00 | Outpatient (RCR) | payer MEDICARE, MEDICAID, SELFPAY | END 2022-10-30 23:59 | disposition home or self-care (01) | LOC: AOT 06:00 | PROVIDERS: PCP Internal Medicine; Visit Provider Internal Medicine | DX: G81.11 Spastic hemiplegia affecting right dominant side (principal); S06.9XAD Unspecified intracranial injury with loss of consciousness status unknown, subsequent encounter; X58.XXXD Exposure to other specified factors, subsequent encounter | CPT/HCPCS: 97110; 97530 ==

== ENCOUNTER 2022-10-01 18:11 | Emergency (ER) | payer MEDICARE, MEDICAID, SELFPAY ==
[2022-10-01 18:16] VITALS: BP 125/91; PULSE 107; RESP 18; TEMP 37.4; O2SAT 96
--- NOTE | 2022-10-01 18:36 | XRR_ITS ---
PROCEDURE INFORMATION: Exam: XR Chest Exam date and time: 10/01/2022 6:41 PM Age: 21 years old Clinical indication: Fever; Prior surgery; Surgery date: 6+ months; Surgery type: Spinal; Additional info: Fever, AMS TECHNIQUE: Imaging protocol: Radiologic exam of the chest. Views: 1 view. COMPARISON: CR XR chest 2V* [id number] 01/27/2021 12:42 PM FINDINGS: Lungs: There is near complete opacification of the left hemithorax. The right lung is clear. Lung volumes are low. Pleural spaces: No pneumothorax. Heart/Mediastinum: The cardiac silhouette is obscured. Bones/joints: There are Jovel rods in the thoracic and lumbar spine. No acute fracture. XR/XR chest 1V portable [id number] IMPRESSION: Low lung volumes with opacification of the left hemithorax. Possible atelectasis, pleural fluid, consolidation, or some combination thereof.
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
[2022-10-01 18:50] VITALS: BP 144/90; O2SAT 96
[2022-10-01 18:58] LABS: Basophils % 0.2 %; Eosinophils % 0.4 %; Hematocrit 45.1 % (42.0-52.0); Hemoglobin 14.7 g/dL (11.7-16.6); Lymphocytes # 2.7 10^3/uL (0.8-4.8); Lymphocytes % 29.9 %; Mean Corpuscular HGB Conc 32.6 g/dL (30.0-36.0); Mean Corpuscular Hemoglobin 30.7 pg (28.0-34.0); Mean Corpuscular Volume 94.2 fl (80-94); Mean Platelet Volume 12.3 fL (7.4-10.4); Monocytes # 0.5 10^3/uL (0.2-0.9); Monocytes % 5.4 %; Neutrophils # 5.83 10^3/uL (1.8-7.7); Nucleated Red Blood Cells % 0 %; Platelet Count 173 10^3/cmm (130-400); Red Blood Count 4.79 10^6/uL (4.1-5.3); Red Cell Distribution Width 12.5 % (12.1-15.1); White Blood Count 9.1 10^3/uL (4.0-10.0)
--- NOTE | 2022-10-01 19:12 | CTR_ITS ---
PROCEDURE INFORMATION: Exam: CT Chest With Contrast; Diagnostic Exam date and time: 10/01/2022 7:36 PM Age: 21 years old Clinical indication: Prior surgery; Surgery type: Jovel mateusz; Patient HX: Fever. Possible infiltrate/effusion noted on cxr. ; Additional info: L sided infiltrate/effusion. Fever TECHNIQUE: Imaging protocol: Diagnostic computed tomography of the chest with contrast. Radiation optimization: All CT scans at this facility use at least one of these dose optimization techniques: automated exposure control; mA and/or kV adjustment per patient size (includes targeted exams where dose is matched to clinical indication); or iterative reconstruction. Contrast material: OMNI 350; Contrast volume: 100 ml; Contrast route: INTRAVENOUS (IV); COMPARISON: CR (CHEST, ) 10/01/2022 6:41 PM RADIATION DOSE METRICS: Total DLP (mGy-cm): 273.45 FINDINGS: Lungs: Shallow inspiration with parenchymal crowding in both lungs. Mild atelectasis in the left lung base. The lungs are otherwise clear. No consolidation. Pleural spaces: Unremarkable. No pneumothorax. No pleural effusion. Heart: Unremarkable. No cardiomegaly. No pericardial effusion. Lymph nodes: Unremarkable. No enlarged lymph nodes. Vasculature: Unremarkable. No aortic aneurysm. Bones/joints: Scoliosis with extensive fusion hardware in the thoracic spine. No fracture identified. Soft tissues: Unremarkable. CT/CT chest w con* [id number] IMPRESSION: 1. No acute pulmonary finding. No evidence for pneumonia or pleural effusion.
[2022-10-01] MEDS: sodium chloride 0.9% 1,000 ML 999 ML IV (19:15)
[2022-10-01 19:21] LABS: Lactate (Lactic Acid level) 0.9 mmol/L (0.5-2.2)
[2022-10-01 19:22] LABS: Alanine Aminotransferase 18 U/L (0-41); Albumin Level 4.3 g/dL (3.5-5.2); Alkaline Phosphatase 76 U/L (40-130); Anion Gap 14.8 (5-19); Aspartate Amino Transferase 19 U/L (0-40); Blood Urea Nitrogen 11 mg/dL (6-20); Calcium 9.2 mg/dL (8.5-10.5); Carbon Dioxide 25 mmol/L (22-29); Chloride 103 mmol/L (98-107); Globulin 3.2 g/dL (1.3-4.6); Glomerular Filtration Rate 266.6 mL/min (90-130); Glucose 101 mg/dL (65-115); Osmolality Calculated 288 mOsm/kg (285-295); Potassium 3.8 mmol/L (3.5-5.1); Sodium 139 mmol/L (136-145); Total Bilirubin 0.5 mg/dL (0.15-1.2); Total Protein 7.5 g/dL (6.6-8.7)
[2022-10-01 19:24] LABS: Rapid Strep A Test Negative (Negative)
[2022-10-01 19:34] LABS: Valproic Acid Level 42.1 ug/mL (50-100)
[2022-10-01 19:37] LABS: Influenza A by IFA negative (Negative); Influenza B by IFA negative (Negative); SARS Covid-2 Antigen negative (Negative)
[2022-10-01] MEDS: iohexol 350 mg/mL 500 mL Btl (per mL) IV (19:39)
[2022-10-01 20:27] LABS: Add Urine Microscopic? NO; Charge for UA Resulting for Rev
[2022-10-01 20:28] LABS: Bilirubin Urine Neg (Negative); Blood Urine Neg (Negative); Glucose Urine UA Norm (Normal); Ketones Urine Negative (Negative); Leukocyte Esterase Urine Negative (Negative); Nitrate Urine Negative (Negative); Protein Urine Neg (Negative); Sulfosalicylic Acid Urine Negative (Negative); Urine Appearance Clear (CLEAR); Urine Color Yellow (Yellow); Urobilinogen Urine Norm (Negative); pH Urine 8 (5-7)
[2022-10-01 21:43] VITALS: BP 116/74; PULSE 102; RESP 18; O2SAT 96
== END 2022-10-01 21:45 | disposition home or self-care (01) ==
PROVIDERS: Emergency Provider Emergency Medicine; PCP Internal Medicine
DX: R41.82 Altered mental status, unspecified (principal); Z20.822 Contact with and (suspected) exposure to COVID-19; G82.50 Quadriplegia, unspecified; Z74.01 Bed confinement status; Z87.820 Personal history of traumatic brain injury
CPT/HCPCS: 71045; 71260; 80053; 80164; 81003; 83605; 85025; 86140; 87081; 87426; 87804; 87880; 99285; J7030; Q9967

== ENCOUNTER 2022-10-31 06:00 | Outpatient (RCR) | payer MEDICARE, MEDICAID, SELFPAY | END 2022-11-30 23:59 | disposition home or self-care (01) | LOC: APT 06:00 | PROVIDERS: PCP Internal Medicine; Visit Provider Internal Medicine | DX: G81.11 Spastic hemiplegia affecting right dominant side (principal) | CPT/HCPCS: 97110 ==

== ENCOUNTER 2022-10-31 06:00 | Outpatient (RCR) | payer MEDICARE, MEDICAID, SELFPAY | END 2022-11-30 23:59 | disposition home or self-care (01) | LOC: AOT 06:00 | PROVIDERS: PCP Internal Medicine; Visit Provider Internal Medicine | DX: G81.11 Spastic hemiplegia affecting right dominant side (principal) | CPT/HCPCS: 97110; 97140; 97530 ==

== ENCOUNTER → 2022-11-04 09:26 | Outpatient (BNVA) | payer MEDICARE, MEDICAID, SELFPAY | PROVIDERS: PCP Internal Medicine; Visit Provider Specialist | DX: G81.11 Spastic hemiplegia affecting right dominant side (principal); S06.9X9S Unspecified intracranial injury with loss of consciousness of unspecified duration, sequela; G40.309 Generalized idiopathic epilepsy and epileptic syndromes, not intractable, without status epilepticus; V89.2XXS Person injured in unspecified motor-vehicle accident, traffic, sequela | CPT/HCPCS: 64642; 64643; 64644; 95911; J0585 ==

== ENCOUNTER 2022-12-01 06:00 | Outpatient (RCR) | payer MEDICARE, MEDICAID, SELFPAY | END 2022-12-28 23:59 | disposition home or self-care (01) | LOC: APT 06:00 | PROVIDERS: PCP Internal Medicine; Visit Provider Internal Medicine | DX: G81.11 Spastic hemiplegia affecting right dominant side (principal); Z87.820 Personal history of traumatic brain injury | CPT/HCPCS: 97110 ==

== ENCOUNTER 2022-12-01 06:00 | Outpatient (RCR) | payer MEDICARE, MEDICAID, SELFPAY | END 2022-12-28 23:59 | disposition home or self-care (01) | LOC: AOT 06:00 | PROVIDERS: PCP Internal Medicine; Visit Provider Internal Medicine | DX: G81.11 Spastic hemiplegia affecting right dominant side (principal) | CPT/HCPCS: 97110; 97168; 97530 ==

== ENCOUNTER 2022-12-29 06:00 | Outpatient (RCR) | payer MEDICARE, MEDICAID, SELFPAY | END 2023-01-28 23:59 | disposition home or self-care (01) | LOC: AOT 06:00 | PROVIDERS: PCP Internal Medicine; Visit Provider Internal Medicine | DX: G81.11 Spastic hemiplegia affecting right dominant side (principal) | CPT/HCPCS: 97110; 97530 ==

== ENCOUNTER 2022-12-29 06:00 | Outpatient (RCR) | payer MEDICARE, MEDICAID, SELFPAY | END 2023-01-28 23:59 | disposition home or self-care (01) | LOC: APT 06:00 | PROVIDERS: PCP Internal Medicine; Visit Provider Internal Medicine | DX: G81.11 Spastic hemiplegia affecting right dominant side (principal); Z87.820 Personal history of traumatic brain injury | CPT/HCPCS: 97110 ==

== ENCOUNTER 2023-01-29 06:00 | Outpatient (RCR) | payer MEDICARE, MEDICAID, SELFPAY | END 2023-02-27 23:59 | disposition home or self-care (01) | LOC: APT 06:00 | PROVIDERS: PCP Internal Medicine; Visit Provider Internal Medicine | DX: G81.11 Spastic hemiplegia affecting right dominant side (principal) | CPT/HCPCS: 97110 ==

== ENCOUNTER 2023-01-29 06:00 | Outpatient (RCR) | payer MEDICARE, MEDICAID, SELFPAY | END 2023-02-27 23:59 | disposition home or self-care (01) | LOC: AOT 06:00 | PROVIDERS: PCP Internal Medicine; Visit Provider Internal Medicine | DX: G81.11 Spastic hemiplegia affecting right dominant side (principal) | CPT/HCPCS: 97110; 97530 ==

== ENCOUNTER 2023-02-28 06:00 | Outpatient (RCR) | payer MEDICARE, MEDICAID, SELFPAY | END 2023-03-30 23:59 | disposition home or self-care (01) | LOC: AOT 06:00 | PROVIDERS: PCP Internal Medicine; Visit Provider Internal Medicine | DX: G81.11 Spastic hemiplegia affecting right dominant side (principal) | CPT/HCPCS: 97110; 97530 ==

== ENCOUNTER 2023-02-28 06:00 | Outpatient (RCR) | payer MEDICARE, MEDICAID, SELFPAY | END 2023-03-30 23:59 | disposition home or self-care (01) | LOC: APT 06:00 | PROVIDERS: PCP Internal Medicine; Visit Provider Internal Medicine | DX: G81.11 Spastic hemiplegia affecting right dominant side (principal); Z87.820 Personal history of traumatic brain injury | CPT/HCPCS: 97110 ==

== ENCOUNTER → 2023-03-17 11:26 | Outpatient (BNVA) | payer MEDICARE, MEDICAID, SELFPAY | PROVIDERS: PCP Internal Medicine; Visit Provider Specialist | DX: G81.11 Spastic hemiplegia affecting right dominant side (principal); S06.9X9S Unspecified intracranial injury with loss of consciousness of unspecified duration, sequela; G40.309 Generalized idiopathic epilepsy and epileptic syndromes, not intractable, without status epilepticus; V89.2XXS Person injured in unspecified motor-vehicle accident, traffic, sequela | CPT/HCPCS: 64642; 64643; 64644; J0585 ==

== ENCOUNTER 2023-03-31 06:00 | Outpatient (RCR) | payer MEDICARE, MEDICAID, SELFPAY | END 2023-04-29 23:59 | disposition home or self-care (01) | LOC: AOT 06:00 | PROVIDERS: PCP Internal Medicine; Visit Provider Internal Medicine | DX: G81.11 Spastic hemiplegia affecting right dominant side (principal) | CPT/HCPCS: 97110; 97530 ==

== ENCOUNTER 2023-03-31 06:00 | Outpatient (RCR) | payer MEDICARE, MEDICAID, SELFPAY | END 2023-04-29 23:59 | disposition home or self-care (01) | LOC: APT 06:00 | PROVIDERS: PCP Internal Medicine; Visit Provider Internal Medicine | DX: G81.11 Spastic hemiplegia affecting right dominant side (principal) | CPT/HCPCS: 97110 ==

== ENCOUNTER 2023-04-30 06:00 | Outpatient (RCR) | payer MEDICARE, MEDICAID, SELFPAY | END 2023-05-30 23:59 | disposition home or self-care (01) | LOC: APT 06:00 | PROVIDERS: PCP Internal Medicine; Visit Provider Internal Medicine | DX: G81.11 Spastic hemiplegia affecting right dominant side (principal) | CPT/HCPCS: 97110 ==

== ENCOUNTER 2023-04-30 06:00 | Outpatient (RCR) | payer MEDICARE, MEDICAID, SELFPAY | END 2023-05-30 23:59 | disposition home or self-care (01) | LOC: AOT 06:00 | PROVIDERS: PCP Internal Medicine; Visit Provider Internal Medicine | DX: G81.11 Spastic hemiplegia affecting right dominant side (principal) | CPT/HCPCS: 97110; 97530 ==

== ENCOUNTER 2023-05-31 06:00 | Outpatient (RCR) | payer MEDICARE, MEDICAID, SELFPAY | END 2023-06-30 23:59 | disposition home or self-care (01) | LOC: AOT 06:00 | PROVIDERS: PCP Internal Medicine; Visit Provider Internal Medicine | DX: G81.11 Spastic hemiplegia affecting right dominant side (principal) | CPT/HCPCS: 97110; 97530 ==

== ENCOUNTER 2023-05-31 06:00 | Outpatient (RCR) | payer MEDICARE, MEDICAID, SELFPAY | END 2023-06-30 23:59 | disposition home or self-care (01) | LOC: APT 06:00 | PROVIDERS: PCP Internal Medicine; Visit Provider Internal Medicine | DX: G81.11 Spastic hemiplegia affecting right dominant side (principal) | CPT/HCPCS: 97110 ==

== ENCOUNTER → 2023-06-16 10:49 | Outpatient (BNVA) | payer MEDICARE, MEDICAID, SELFPAY | PROVIDERS: PCP Internal Medicine; Visit Provider Specialist | DX: F06.8 Other specified mental disorders due to known physiological condition (principal); S06.9X0S Unspecified intracranial injury without loss of consciousness, sequela; G40.309 Generalized idiopathic epilepsy and epileptic syndromes, not intractable, without status epilepticus; G81.11 Spastic hemiplegia affecting right dominant side; V89.2XXS Person injured in unspecified motor-vehicle accident, traffic, sequela | CPT/HCPCS: 64642; 64643; 64644; 99212; J0585 ==

== ENCOUNTER 2023-07-01 06:00 | Outpatient (RCR) | payer MEDICARE, MEDICAID, SELFPAY | END 2023-07-30 23:59 | disposition home or self-care (01) | LOC: AOT 06:00 | PROVIDERS: PCP Internal Medicine; Visit Provider Internal Medicine | DX: G81.11 Spastic hemiplegia affecting right dominant side (principal); Z87.820 Personal history of traumatic brain injury | CPT/HCPCS: 97110; 97530 ==

== ENCOUNTER 2023-07-01 06:00 | Outpatient (RCR) | payer MEDICARE, MEDICAID, SELFPAY | END 2023-07-30 23:59 | disposition home or self-care (01) | LOC: APT 06:00 | PROVIDERS: PCP Internal Medicine; Visit Provider Internal Medicine | DX: G81.11 Spastic hemiplegia affecting right dominant side (principal) | CPT/HCPCS: 97110 ==

== ENCOUNTER 2023-07-31 06:00 | Outpatient (RCR) | payer MEDICARE, MEDICAID, SELFPAY | END 2023-08-30 23:59 | disposition home or self-care (01) | LOC: AOT 06:00 | PROVIDERS: PCP Internal Medicine; Visit Provider Internal Medicine | DX: G81.11 Spastic hemiplegia affecting right dominant side (principal) | CPT/HCPCS: 97110; 97530 ==

== ENCOUNTER 2023-07-31 06:00 | Outpatient (RCR) | payer MEDICARE, MEDICAID, SELFPAY | END 2023-08-30 23:59 | disposition home or self-care (01) | LOC: APT 06:00 | PROVIDERS: PCP Internal Medicine; Visit Provider Internal Medicine | DX: G81.11 Spastic hemiplegia affecting right dominant side (principal) | CPT/HCPCS: 97110 ==

== ENCOUNTER 2023-08-31 06:00 | Outpatient (RCR) | payer MEDICARE, MEDICAID, SELFPAY | END 2023-09-29 23:59 | disposition home or self-care (01) | LOC: AOT 06:00 | PROVIDERS: PCP Internal Medicine; Visit Provider Internal Medicine | DX: G81.11 Spastic hemiplegia affecting right dominant side (principal) | CPT/HCPCS: 97110; 97530 ==

== ENCOUNTER 2023-08-31 06:00 | Outpatient (RCR) | payer MEDICARE, MEDICAID, SELFPAY | END 2023-09-29 23:59 | disposition home or self-care (01) | LOC: APT 06:00 | PROVIDERS: PCP Internal Medicine; Visit Provider Internal Medicine | DX: G81.11 Spastic hemiplegia affecting right dominant side (principal); Z87.820 Personal history of traumatic brain injury | CPT/HCPCS: 97110 ==

== ENCOUNTER → 2023-09-15 11:10 | Outpatient (BNVA) | payer MEDICARE, MEDICAID, SELFPAY | PROVIDERS: PCP Internal Medicine; Visit Provider Specialist | DX: G81.11 Spastic hemiplegia affecting right dominant side (principal); G40.309 Generalized idiopathic epilepsy and epileptic syndromes, not intractable, without status epilepticus | CPT/HCPCS: 64644; J0585 ==

== ENCOUNTER 2023-09-30 06:00 | Outpatient (RCR) | payer MEDICARE, MEDICAID, SELFPAY | END 2023-10-30 23:59 | disposition home or self-care (01) | LOC: AOT 06:00 | PROVIDERS: PCP Internal Medicine; Visit Provider Internal Medicine | DX: S06.9XAD Unspecified intracranial injury with loss of consciousness status unknown, subsequent encounter (principal); X58.XXXD Exposure to other specified factors, subsequent encounter | CPT/HCPCS: 97110; 97530 ==

== ENCOUNTER 2023-09-30 06:00 | Outpatient (RCR) | payer MEDICARE, MEDICAID, SELFPAY | END 2023-10-30 23:59 | disposition home or self-care (01) | LOC: APT 06:00 | PROVIDERS: PCP Internal Medicine; Visit Provider Internal Medicine | DX: G81.11 Spastic hemiplegia affecting right dominant side (principal); S06.9XAD Unspecified intracranial injury with loss of consciousness status unknown, subsequent encounter; X58.XXXD Exposure to other specified factors, subsequent encounter | CPT/HCPCS: 97110; 97530 ==

== ENCOUNTER 2023-10-31 06:00 | Outpatient (RCR) | payer MEDICARE, MEDICAID, SELFPAY | END 2023-11-30 23:59 | disposition home or self-care (01) | LOC: APT 06:00 | PROVIDERS: PCP Internal Medicine; Visit Provider Internal Medicine | DX: G81.11 Spastic hemiplegia affecting right dominant side (principal) | CPT/HCPCS: 97110 ==

== ENCOUNTER 2023-12-01 06:00 | Outpatient (RCR) | payer MEDICARE, MEDICAID, SELFPAY | END 2023-12-29 23:59 | disposition home or self-care (01) | LOC: AOT 06:00 | PROVIDERS: PCP Internal Medicine; Visit Provider Internal Medicine | DX: S06.9XAD Unspecified intracranial injury with loss of consciousness status unknown, subsequent encounter (principal); X58.XXXD Exposure to other specified factors, subsequent encounter | CPT/HCPCS: 97110; 97530 ==

== ENCOUNTER 2023-12-01 06:00 | Outpatient (RCR) | payer MEDICARE, MEDICAID, SELFPAY | END 2023-12-29 23:59 | disposition home or self-care (01) | LOC: APT 06:00 | PROVIDERS: PCP Internal Medicine; Visit Provider Internal Medicine | DX: G81.11 Spastic hemiplegia affecting right dominant side (principal) | CPT/HCPCS: 97110 ==

== ENCOUNTER → 2023-12-22 10:46 | Outpatient (BNVA) | payer MEDICARE, MEDICAID, SELFPAY | PROVIDERS: PCP Internal Medicine; Visit Provider Specialist | DX: G81.11 Spastic hemiplegia affecting right dominant side (principal) | CPT/HCPCS: 64644; J0585 ==

== ENCOUNTER 2023-12-30 06:00 | Outpatient (RCR) | payer MEDICARE, MEDICAID, SELFPAY | END 2024-01-29 23:59 | disposition home or self-care (01) | LOC: AOT 06:00 | PROVIDERS: PCP Internal Medicine; Visit Provider Internal Medicine | DX: S06.9XAD Unspecified intracranial injury with loss of consciousness status unknown, subsequent encounter (principal); X58.XXXD Exposure to other specified factors, subsequent encounter | CPT/HCPCS: 97110; 97530 ==

== ENCOUNTER 2023-12-30 06:00 | Outpatient (RCR) | payer MEDICARE, MEDICAID, SELFPAY | END 2024-01-29 23:59 | disposition home or self-care (01) | LOC: APT 06:00 | PROVIDERS: PCP Internal Medicine; Visit Provider Internal Medicine | DX: G81.11 Spastic hemiplegia affecting right dominant side (principal); S06.9XAD Unspecified intracranial injury with loss of consciousness status unknown, subsequent encounter; X58.XXXD Exposure to other specified factors, subsequent encounter | CPT/HCPCS: 97110; 97530 ==

== ENCOUNTER 2024-01-30 06:00 | Outpatient (RCR) | payer MEDICARE, MEDICAID, SELFPAY | END 2024-02-28 23:59 | disposition home or self-care (01) | LOC: APT 06:00 | PROVIDERS: PCP Internal Medicine; Visit Provider Internal Medicine | DX: G81.11 Spastic hemiplegia affecting right dominant side (principal) | CPT/HCPCS: 97110 ==

== ENCOUNTER 2024-01-30 06:00 | Outpatient (RCR) | payer MEDICARE, MEDICAID, SELFPAY | END 2024-02-28 23:59 | disposition home or self-care (01) | LOC: AOT 06:00 | PROVIDERS: PCP Internal Medicine; Visit Provider Internal Medicine | DX: S06.9XAD Unspecified intracranial injury with loss of consciousness status unknown, subsequent encounter (principal); X58.XXXD Exposure to other specified factors, subsequent encounter | CPT/HCPCS: 97110; 97530 ==

== ENCOUNTER 2024-02-29 06:00 | Outpatient (RCR) | payer MEDICARE, MEDICAID, SELFPAY | END 2024-03-30 23:59 | disposition home or self-care (01) | LOC: APT 06:00 | PROVIDERS: PCP Internal Medicine; Visit Provider Internal Medicine | DX: G81.11 Spastic hemiplegia affecting right dominant side (principal) | CPT/HCPCS: 97110 ==

== ENCOUNTER 2024-02-29 06:00 | Outpatient (RCR) | payer MEDICARE, MEDICAID, SELFPAY | END 2024-03-30 23:59 | disposition home or self-care (01) | LOC: AOT 06:00 | PROVIDERS: PCP Internal Medicine; Visit Provider Internal Medicine | DX: S06.9XAD Unspecified intracranial injury with loss of consciousness status unknown, subsequent encounter (principal); X58.XXXD Exposure to other specified factors, subsequent encounter | CPT/HCPCS: 97110; 97530 ==

== ENCOUNTER → 2024-03-29 11:25 | Outpatient (BNVA) | payer MEDICARE, MEDICAID, SELFPAY | PROVIDERS: PCP Internal Medicine; Visit Provider Specialist | DX: G81.10 Spastic hemiplegia affecting unspecified side (principal); M24.531 Contracture, right wrist; F06.8 Other specified mental disorders due to known physiological condition; S06.9X0S Unspecified intracranial injury without loss of consciousness, sequela; S06.9X9S Unspecified intracranial injury with loss of consciousness of unspecified duration, sequela; G40.309 Generalized idiopathic epilepsy and epileptic syndromes, not intractable, without status epilepticus; X58.XXXS Exposure to other specified factors, sequela | CPT/HCPCS: 64644; 64645; 99213; J0585 ==

== ENCOUNTER 2024-03-31 06:00 | Outpatient (RCR) | payer MEDICARE, MEDICAID, SELFPAY | END 2024-04-29 23:59 | disposition home or self-care (01) | LOC: APT 06:00 | PROVIDERS: PCP Internal Medicine; Visit Provider Internal Medicine | DX: G81.11 Spastic hemiplegia affecting right dominant side (principal) | CPT/HCPCS: 97110 ==

== ENCOUNTER 2024-04-30 06:00 | Outpatient (RCR) | payer MEDICARE, MEDICAID, SELFPAY | END 2024-05-30 23:59 | disposition home or self-care (01) | LOC: APT 06:00 | PROVIDERS: PCP Internal Medicine; Visit Provider Internal Medicine | DX: G81.11 Spastic hemiplegia affecting right dominant side (principal) | CPT/HCPCS: 97110 ==

== ENCOUNTER 2024-05-31 06:00 | Outpatient (RCR) | payer MEDICARE, MEDICAID, SELFPAY | END 2024-06-30 23:59 | disposition home or self-care (01) | LOC: SOT 06:00 | PROVIDERS: PCP Internal Medicine; Visit Provider Occupational Therapist | DX: G81.11 Spastic hemiplegia affecting right dominant side (principal) | CPT/HCPCS: 97110; 97168; 97530 ==

== ENCOUNTER 2024-05-31 06:00 | Outpatient (RCR) | payer MEDICARE, MEDICAID, SELFPAY | END 2024-06-30 23:59 | disposition home or self-care (01) | LOC: APT 06:00 | PROVIDERS: PCP Internal Medicine; Visit Provider Internal Medicine | DX: G81.11 Spastic hemiplegia affecting right dominant side (principal) | CPT/HCPCS: 97110 ==

== ENCOUNTER → 2024-06-28 13:31 | Outpatient (BNVA) | payer MEDICARE, MEDICAID, SELFPAY | PROVIDERS: PCP Internal Medicine; Visit Provider Specialist | DX: F06.8 Other specified mental disorders due to known physiological condition; S06.9X0S Unspecified intracranial injury without loss of consciousness, sequela; S06.9X9S Unspecified intracranial injury with loss of consciousness of unspecified duration, sequela; G40.309 Generalized idiopathic epilepsy and epileptic syndromes, not intractable, without status epilepticus; M24.531 Contracture, right wrist; G81.11 Spastic hemiplegia affecting right dominant side; X58.XXXS Exposure to other specified factors, sequela | CPT/HCPCS: 64644; J0585 ==

== ENCOUNTER 2024-07-01 06:00 | Outpatient (RCR) | payer MEDICARE, MEDICAID, SELFPAY | END 2024-07-30 23:59 | disposition home or self-care (01) | LOC: SPO 06:00 | PROVIDERS: PCP Internal Medicine; Visit Provider Internal Medicine | DX: G81.11 Spastic hemiplegia affecting right dominant side (principal) | CPT/HCPCS: 97110; 97530 ==

== ENCOUNTER 2024-07-31 06:00 | Outpatient (RCR) | payer MEDICARE, MEDICAID, SELFPAY | END 2024-08-30 23:59 | disposition home or self-care (01) | LOC: SPO 06:00 | PROVIDERS: PCP Internal Medicine; Visit Provider Internal Medicine | DX: G81.11 Spastic hemiplegia affecting right dominant side (principal) | CPT/HCPCS: 97110; 97530 ==

== ENCOUNTER 2024-08-31 06:00 | Outpatient (RCR) | payer MEDICARE, MEDICAID, SELFPAY | END 2024-09-29 23:59 | disposition home or self-care (01) | LOC: SPO 06:00 | PROVIDERS: PCP Internal Medicine; Visit Provider Internal Medicine | DX: G81.11 Spastic hemiplegia affecting right dominant side (principal) | CPT/HCPCS: 97110; 97530 ==

== ENCOUNTER 2024-09-30 06:00 | Outpatient (RCR) | payer MEDICARE, MEDICAID, SELFPAY | END 2024-10-30 23:59 | disposition home or self-care (01) | LOC: SPO 06:00 | PROVIDERS: PCP Internal Medicine; Visit Provider Internal Medicine | DX: G81.11 Spastic hemiplegia affecting right dominant side (principal) | CPT/HCPCS: 97110; 97530 ==

== ENCOUNTER → 2024-10-05 14:00 | Outpatient (BNVA) | payer MEDICARE, MEDICAID, SELFPAY | PROVIDERS: PCP Internal Medicine; Visit Provider Specialist | DX: G81.11 Spastic hemiplegia affecting right dominant side; F06.8 Other specified mental disorders due to known physiological condition; S06.9X0S Unspecified intracranial injury without loss of consciousness, sequela; S06.9X9S Unspecified intracranial injury with loss of consciousness of unspecified duration, sequela; X58.XXXS Exposure to other specified factors, sequela; G40.309 Generalized idiopathic epilepsy and epileptic syndromes, not intractable, without status epilepticus; M24.531 Contracture, right wrist | CPT/HCPCS: 64644; J0585 ==

== ENCOUNTER 2024-10-31 06:00 | Outpatient (RCR) | payer MEDICARE, MEDICAID, SELFPAY | END 2024-11-30 23:59 | disposition home or self-care (01) | LOC: SPO 06:00 | PROVIDERS: PCP Internal Medicine; Visit Provider Internal Medicine | DX: G81.11 Spastic hemiplegia affecting right dominant side (principal) | CPT/HCPCS: 97110; 97530 ==

== ENCOUNTER 2024-11-20 18:59 | Inpatient (IN) | payer MEDICARE, MEDICAID, SELFPAY ==
[2024-11-20 18:59] VITALS: BP 138/72; PULSE 119; RESP 18; TEMP 38.5; O2SAT 94
--- NOTE | 2024-11-20 19:04 | XRR_ITS ---
PROCEDURE INFORMATION: Exam: XR Chest Exam date and time: 11/20/2024 7:33 PM Age: 23 years old Clinical indication: Other: Weakness; Prior surgery; Surgery date: 6+ months; Surgery type: Spine TECHNIQUE: Imaging protocol: Radiologic exam of the chest. Views: 1 view. COMPARISON: CT chest w con* [id number] 10/01/2022 7:36 PM FINDINGS: Lungs: No focal consolidation. Pleural spaces: Unremarkable. No pleural effusion. No pneumothorax. Heart/Mediastinum: Unremarkable. No cardiomegaly. Bones/joints: Partially visualized fusion hardware extending from the upper thoracic spine inferiorly off the field of view. XR/XR chest 1V portable [id number] IMPRESSION: No focal consolidation.
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
[2024-11-20] MEDS: acetaminophen 1,000 MG/100 ML PIGGYBACK 400 MG IV (19:18)
[2024-11-20 19:35] LABS: Basophils % 0.1 %; Eosinophils % 0.1 %; Hematocrit 47.2 % (37-53); Lymphocytes # 1.5 10^3/uL (0.8-4.8); Lymphocytes % 9.2 %; Mean Corpuscular HGB Conc 30.7 g/dL (30-55); Mean Corpuscular Hemoglobin 29.6 pg (27-33); Mean Corpuscular Volume 96.3 fl (82-101); Mean Platelet Volume 12.3 fL (7.4-10.4); Monocytes # 0.9 10^3/uL (0.2-0.9); Monocytes % 5.5 %; Neutrophils # 13.63 10^3/uL (1.8-7.7); Neutrophils % 84.9 %; Nucleated Red Blood Cells % 0 %; Platelet Count 200 10^3/cmm (157-399); Red Cell Distribution Width 12.8 % (12.1-15.1); White Blood Count 16.06 10^3/uL (3.29-11.43)
[2024-11-20 19:39] LABS: Bilirubin Urine Negative (Negative); Blood Urine Negative (Negative); Glucose Urine UA Negative (Normal); Ketones Urine 1+ (Negative); Leukocyte Esterase Urine Negative (Negative); Nitrate Urine Negative (Negative); Protein Urine Negative (Negative); Specific Gravity, Urine 1.028 (1.005-1.030); Urine Appearance Clear (CLEAR); Urine Color Yellow (Yellow); pH Urine 7.5 (5-7)
[2024-11-20 19:51] LABS: Alanine Aminotransferase 19 U/L (0-41); Albumin Level 4.4 g/dL (3.5-5.2); Alkaline Phosphatase 86 U/L (40-130); Aspartate Amino Transferase 17 U/L (0-40); Blood Urea Nitrogen 9 mg/dL (6-20); Calcium 9.2 mg/dL (8.5-10.5); Carbon Dioxide 28 mmol/L (22-29); Chloride 102 mmol/L (98-107); Globulin 3.3 g/dL (1.3-4.6); Glomerular Filtration Rate 262.1 mL/min (90-130); Glucose 122 mg/dL (65-115); Lactic Sepsis W/Reflex 3.9 mmol/L (0.5-2.2); Osmolality Calculated 296 mOsm/kg (285-295); Sodium 143 mmol/L (136-145); Total Bilirubin 0.5 mg/dL (0.15-1.2); Total Protein 7.7 g/dL (6.6-8.7)
[2024-11-20 19:53] LABS: Bacteria Urine None Seen /hpf; Hyaline Casts Urine 1.21 /lpf; RBC Urine 0-2 /hpf (0-2); Squamous Epithelial Cell Urine 0-5 /hpf (0-5); WBC Urine 21-50 /hpf (0-5)
[2024-11-20 19:55] LABS: Anion Gap 17.1 (5-19); Potassium 4.1 mmol/L (3.5-5.1)
[2024-11-20 19:58] LABS: Procalcitonin 0.03 ng/mL (0-0.5)
[2024-11-20 20:00] LABS: Add Urine Culture? No
[2024-11-20] MEDS: sodium chloride 0.9% 1,000 ML 999 ML IV (20:06)
[2024-11-20] MEDS: LORazepam 2 mg/mL INJ 1 mL 1 MG IVP (20:06)
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
[2024-11-20] MEDS: cefepime 2,000 mg SDV 2000 MG IVP (20:33)
[2024-11-20] MEDS: sodium chloride 0.9% 500 ML 999 ML IV (20:33)
[2024-11-20 20:39] VITALS: BP 138/93; PULSE 120; RESP 20; TEMP 37.9; O2SAT 96
--- NOTE | 2024-11-20 20:45 | PHA.VACGOAL ---
Vancomycin Goal - Goal Vancomycin Goal:: 15-20 mg/L Vancomycin Indication:: Other (SEPSIS) - Therapy Day of therpy:: Day 1 of [] . Actual body weight (kg): 112 lb - Data Labs: WBC 16.06 10^3/uL (3.29-11.43) H 11/20/24 19:19 RBC 4.90 10^6/uL (3.85-5.65) 11/20/24 19:19 Hgb 14.50 g/dL (11.27-16.99) 11/20/24 19:19 Hct 47.2 % (37-53) 11/20/24 19:19 MCV 96.3 fl (82-101) 11/20/24 19:19 MCH 29.6 pg (27-33) 11/20/24 19:19 MCHC 30.7 g/dL (30-55) 11/20/24 19:19 RDW 12.8 % (12.1-15.1) 11/20/24 19:19 Sodium 143 mmol/L (136-145) 11/20/24 19:19 Potassium 4.1 mmol/L (3.5-5.1) 11/20/24 19:19 Chloride 102 mmol/L (98-107) 11/20/24 19:19 Carbon Dioxide 28 mmol/L (22-29) 11/20/24 19:19 Anion Gap 17.1 (5-19) 11/20/24 19:19 BUN 9 mg/dL (6-20) 11/20/24 19:19 Creatinine 0.4 mg/dL (0.7-1.2) L 11/20/24 19:19 GFR Calculation 262.1 mL/min (90-130) H 11/20/24 19:19 Last dialysis session:: N/A Treatment plan:: new consult Regimen:: LOADING DOSE OF 1500 MG PER DOSING PROTOCOL MAINTENANCE DOSE OF 750 MG Q8H Follow up:: WILL CONTINUE TO MONITOR AND FOLLOW UP DAILY
[2024-11-20 21:03] VITALS: BP 138/93; PULSE 119; RESP 16; O2SAT 96
[2024-11-20] MEDS: vancomycin 1,500 MG/300 ML PIGGYBACK 200 MG IV (21:09)
[2024-11-20 21:14] LABS: Reflex Lactate Order REFLEX LACTIC ORDERD
[2024-11-20 21:26] LABS: Adenovirus Not Detected (NOT DETECT); Chlamydia Pneumoniae Not Detected (NOT DETECT); Coronavirus 229E,HKU1,NL63,OC4 Not Detected (NOT DETECT); Human Metapneumovirus Not Detected (NOT DETECT); Human Rhinovirus/Enterovirus Not Detected (NOT DETECT); Influenza A Not Detected (NOT DETECT); Influenza A H1 Not Detected (NOT DETECT); Influenza A H1-2009 Not Detected (NOT DETECT); Influenza A H3 Not Detected (NOT DETECT); Influenza B Not Detected (NOT DETECT); Mycoplasma Pneumoniae Not Detected (NOT DETECT); Parainfluenza Virus Type 1 Not Detected (NOT DETECT); Parainfluenza Virus Type 2 Not Detected (NOT DETECT); Parainfluenza Virus Type 3 Not Detected (NOT DETECT); Parainfluenza Virus Type 4 Not Detected (NOT DETECT); Respiratory Syncytial Virus A Not Detected (NOT DETECT); Respiratory Syncytial Virus B Not Detected (NOT DETECT); SARS-COV-2 Not Detected (NOT DETECT)
[2024-11-20 22:25] VITALS: BP 113/76; PULSE 108; RESP 16; TEMP 36.8; O2SAT 95
[2024-11-20 22:51] LABS: Lactic Acid level (Lactate) 3.2 mmol/L (0.5-2.2)
--- NOTE | 2024-11-20 23:05 | PC.NURSE ---
Addendum entered by Michela Sandoval RN 11/20/24 23:10: Parents also state that patient is incontinent of urine and bowel. Addendum entered by Michela Sandoval RN 11/20/24 23:07: Father states that patient gets up to wheelchair and recliner at home, but is not able to ambulate. Mother states that the patient makes sounds at times, but is mostly nonverbal. She takes that he is able to do things with his left arm and hand, but not with his right arm and hand. Original Note: Mother of patient state that patient can eat food and that he does not have a special diet, but they state that he has to have honey thick liquids. I asked if the patient's pills need to be crushed and the mother states no, he usually chews them.
[2024-11-21] VITALS (9 sets, daily range): BP systolic 89–110; BP diastolic 56–72; PULSE 70–99; RESP 15–18; TEMP 36.4–37; O2SAT 92–96
[2024-11-21] MEDS: lactated ringers 1,000 ML 333 ML IV (02:57)
[2024-11-21] MEDS: cefepime 2,000 mg SDV 2000 MG IVP ×2 (04:27→12:22)
[2024-11-21 04:40] LABS: Rapid Strep A Test Negative (Negative)
[2024-11-21 05:14] LABS: Basophils % 0.2 %; Eosinophils # 0.1 10^3/uL (0.0-0.8); Eosinophils % 0.5 %; Lymphocytes % 18.4 %; Mean Corpuscular HGB Conc 30.9 g/dL (30-55); Mean Corpuscular Volume 97.2 fl (82-101); Mean Platelet Volume 12.1 fL (7.4-10.4); Monocytes # 0.9 10^3/uL (0.2-0.9); Monocytes % 5.3 %; Neutrophils # 12.26 10^3/uL (1.8-7.7); Neutrophils % 75.3 %; Nucleated Red Blood Cells % 0 %; Platelet Count 158 10^3/cmm (157-399); White Blood Count 16.28 10^3/uL (3.29-11.43)
[2024-11-21 05:38] LABS: Alanine Aminotransferase 11 U/L (0-41); Albumin Level 3.1 g/dL (3.5-5.2); Alkaline Phosphatase 59 U/L (40-130); Anion Gap 11.8 (5-19); Aspartate Amino Transferase 11 U/L (0-40); Blood Urea Nitrogen 8 mg/dL (6-20); Carbon Dioxide 25 mmol/L (22-29); Chloride 106 mmol/L (98-107); Creatinine Clr Calc Pharmacy 211.9546; Glomerular Filtration Rate 262.1 mL/min (90-130); Glucose 95 mg/dL (65-115); Magnesium 1.7 mg/dL (1.7-2.3); Osmolality Calculated 286 mOsm/kg (285-295); Phosphorus 2.5 mg/dL (2.5-4.5); Potassium 3.8 mmol/L (3.5-5.1); Sodium 139 mmol/L (136-145); Total Bilirubin 0.6 mg/dL (0.15-1.2); Total Protein 5.1 g/dL (6.6-8.7)
[2024-11-21] MEDS: VANCOMYCIN ADD-Vantage 750 MG in 0.9% NaCl ADD-Vantage 250 ML 250 MG IV ×3 (06:07→21:22)
[2024-11-21] MEDS: sodium chloride 0.9% 1,000 ML 75 ML IV (06:07)
[2024-11-21] MEDS: LORazepam 1 mg Tablet 1.5 MG PO ×2 (08:42→18:37)
[2024-11-21] MEDS: valproic acid 250 mg/5 mL UDC 375 MG PO (08:42)
--- NOTE | 2024-11-21 09:57 | PC.CHAP ---
Pastoral Care Encounter/Spiritual Assessment Type of Contact [] Declined plate washer visit [] Patient/Family/Request visit [] Outpatient visit [] Follow-up visit [] Physician referral [] Code/Alert [x] Routine visit [] Staff referral [] Actively dying [] Patient sleeping [x] Family support [] [] Out of room [] Palliative care [] [] Receiving care in room [] Pre-surgical visit [] Trauma [] Long length of stay [] ICU visit [] Other: Relational/Emotional Strength [] Patient feels connected with others/family/visitors/staff [x] Distress [] Loneliness/isolation [] Abandonment Spirituality of Patient [] Person of [place] [] Attends Protestant of their [place] [] Believes in Prayer [] Reads Bible or Anabaptist materials [] There are Spiritual issues to be addressed Register Repairer Interventions [x] Prayer [x] Active listening [x] Non-anxious presence [x] Spiritual/emotional support [] Crisis/trauma care [] Spiritual counseling [] Bereavement support [] Provided bereavement packet [] Provided Bible/devotional materials [] Provided toy/stuffed animal, coloring book to patient or family member [] Provided Communion [] Anointing/[place] [] Salvation [x] Completed spiritual assessment [] Other: Impact on Illness or Injury [] Angry [] Fearful [] Anxious [] Often cries [] Exhaustion [] Unable to work [] Unable to attend latter-day [] Unable to walk/stand [] Unable to read [] Unable to drive [] Unable to eat/drink [] Unable to sleep [] Unable to be with family [] Patient intubated [] Other: Summary Time spent with patient 5 min
--- NOTE | 2024-11-21 11:40 | PC.OT ---
OT EVALUATION ORDERS RECEIVED. SPOKE WITH PARENTS WHO STATE THAT PATIENT IS TOTAL CARE AT BASELINE. NO FURTHER SKILLED OT REQUIRED.
[2024-11-21] MEDS: ESOMEPRAZOLE 40 MG 40 EACH PO ×2 (12:20→18:36)
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
[2024-11-21] MEDS: piperacillin-tazobactam 3.375 GM in sodium chloride 0.9% (plus) 50 ML IV (16:41)
[2024-11-21] MEDS: bisacodyl 10 mg Supp PR (21:45)
[2024-11-21] MEDS: valproic acid 250 mg/5 mL UDC PO (21:45)
[2024-11-21] MEDS: enoxaparin 30 mg/0.3 mL Syringe SUBCUT (21:45)
[2024-11-22] MEDS: piperacillin-tazobactam 3.375 GM in sodium chloride 0.9% (plus) 50 ML IV (01:19)
[2024-11-22 04:00] VITALS: BP 105/64; PULSE 67; RESP 15; TEMP 36.8; O2SAT 94
[2024-11-22 04:33] LABS: Basophils % 0.4 %; Eosinophils # 0.1 10^3/uL (0.0-0.8); Hematocrit 39.8 % (37-53); Lymphocytes # 3.5 10^3/uL (0.8-4.8); Lymphocytes % 35.3 %; Mean Corpuscular HGB Conc 30.9 g/dL (30-55); Mean Corpuscular Hemoglobin 30.1 pg (27-33); Mean Corpuscular Volume 97.5 fl (82-101); Mean Platelet Volume 12.3 fL (7.4-10.4); Monocytes # 0.5 10^3/uL (0.2-0.9); Monocytes % 4.9 %; Neutrophils # 5.74 10^3/uL (1.8-7.7); Neutrophils % 58.2 %; Nucleated Red Blood Cells % 0 %; Platelet Count 156 10^3/cmm (157-399); Red Blood Count 4.08 10^6/uL (3.85-5.65); Red Cell Distribution Width 12.9 % (12.1-15.1); White Blood Count 9.86 10^3/uL (3.29-11.43)
[2024-11-22 04:50] LABS: Alanine Aminotransferase 9 U/L (0-41); Albumin Level 3.6 g/dL (3.5-5.2); Alkaline Phosphatase 64 U/L (40-130); Anion Gap 16.7 (5-19); Aspartate Amino Transferase 13 U/L (0-40); Blood Urea Nitrogen 6 mg/dL (6-20); Calcium 8.7 mg/dL (8.5-10.5); Carbon Dioxide 25 mmol/L (22-29); Chloride 103 mmol/L (98-107); Creatinine Clr Calc Pharmacy 167.1883; Globulin 2.7 g/dL (1.3-4.6); Glomerular Filtration Rate 202.6 mL/min (90-130); Glucose 81 mg/dL (65-115); Magnesium 1.8 mg/dL (1.7-2.3); Osmolality Calculated 289 mOsm/kg (285-295); Potassium 3.7 mmol/L (3.5-5.1); Sodium 141 mmol/L (136-145); Total Bilirubin 0.5 mg/dL (0.15-1.2); Total Protein 6.3 g/dL (6.6-8.7); Vancomycin Trough 12.7 ug/mL (10-15)
[2024-11-22] MEDS: LORazepam 2 mg/mL INJ 1 mL IM (05:41)
[2024-11-22 07:43] VITALS: BP 104/68; PULSE 84; RESP 16; TEMP 36.8; O2SAT 93
[2024-11-22] MEDS: valproic acid 250 mg/5 mL UDC 375 MG PO (09:52)
[2024-11-22] MEDS: ESOMEPRAZOLE 40 MG 40 EACH PO (09:53)
[2024-11-22] MEDS: LORazepam 1 mg Tablet 1.5 MG PO (09:53)
[2024-11-22 11:36] VITALS: BP 99/66; PULSE 99; RESP 16; TEMP 36.9; O2SAT 94
--- NOTE | 2024-11-22 12:43 | XR_ITS ---
WS: [id number] Portable AP supine chest, 11/22/2024 Clinical Data: pneumonia Comparison: Portable chest, 11/20/2024 Findings: No nodules, masses or effusions are seen. The heart is normal. The pulmonary vascularity is not increased. No pneumonia or pneumothorax is seen. There is volume loss of left lung due to the pa tient's scoliosis. There is a thoracolumbar posterior fusion with bilateral pedicle screws and connec ting rods. There is a dextroscoliosis of the entire thoracic spine with a compensatory levoscoliosis of the lumbar spine. There is air in the small bowel and the colon. XR/XR chest 1V portable [id number] Impression: Negative for acute cardiopulmonary disease.
[2024-11-22 14:41] LABS: MRSA PCR OZH (swab) NOT DETECTED (Negative)
[2024-11-22 14:43] VITALS: BP 99/66; PULSE 99; TEMP 36.9; O2SAT 94
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
== END 2024-11-22 14:40 | disposition home or self-care (01) | DRG 871 ==
LOC: ER 20:51 → MEDSURG 21:03
PROVIDERS: Admitting Provider Internal Medicine; Emergency Provider Emergency Medicine; PCP Internal Medicine; Visit Provider Student in an Organized Health Care Education/Training Program
DX: A41.9 Sepsis, unspecified organism (principal); G82.50 Quadriplegia, unspecified; J69.0 Pneumonitis due to inhalation of food and vomit; E87.20 Acidosis, unspecified; N39.0 Urinary tract infection, site not specified; R65.20 Severe sepsis without septic shock; G40.409 Other generalized epilepsy and epileptic syndromes, not intractable, without status epilepticus; K20.90 Esophagitis, unspecified without bleeding; K21.9 Gastro-esophageal reflux disease without esophagitis; Z87.820 Personal history of traumatic brain injury
CPT/HCPCS: 36415; 71045; 80053; 80202; 81001; 83605; 83735; 84100; 84145; 85025; 87040; 87081; 87486; 87581; 87633; 87880; 94664; 96361; 96372; 96374; 96375; 99285; J0131; J0692; J1650; J2060; J2543; J3370; J7030; J7040; J7050; J7120

== ENCOUNTER 2024-12-01 06:30 | Outpatient (RCR) | payer MEDICARE, MEDICAID, SELFPAY | END 2024-12-28 23:59 | disposition home or self-care (01) | LOC: SPO 06:30 | PROVIDERS: PCP Internal Medicine; Visit Provider Internal Medicine | DX: G81.11 Spastic hemiplegia affecting right dominant side (principal) | CPT/HCPCS: 97110; 97168; 97530 ==

== ENCOUNTER → 2024-12-28 10:05 | Outpatient (BNVA) | payer MEDICARE, MEDICAID, SELFPAY | PROVIDERS: PCP Internal Medicine; Visit Provider Specialist | DX: G40.309 Generalized idiopathic epilepsy and epileptic syndromes, not intractable, without status epilepticus (principal); F06.8 Other specified mental disorders due to known physiological condition; S06.9X9S Unspecified intracranial injury with loss of consciousness of unspecified duration, sequela; M24.531 Contracture, right wrist; X58.XXXS Exposure to other specified factors, sequela | CPT/HCPCS: 64644; J0585 ==

== ENCOUNTER 2024-12-29 06:00 | Outpatient (RCR) | payer MEDICARE, MEDICAID, SELFPAY | END 2025-01-28 23:59 | disposition home or self-care (01) | LOC: SPO 06:00 | PROVIDERS: PCP Internal Medicine; Visit Provider Internal Medicine | DX: G81.11 Spastic hemiplegia affecting right dominant side (principal) | CPT/HCPCS: 97110; 97530 ==

== ENCOUNTER 2025-01-29 06:00 | Outpatient (RCR) | payer MEDICARE, MEDICAID, SELFPAY | END 2025-02-27 23:59 | disposition home or self-care (01) | LOC: SPO 06:00 | PROVIDERS: Visit Provider Internal Medicine | DX: G81.11 Spastic hemiplegia affecting right dominant side (principal) | CPT/HCPCS: 97110; 97530 ==

== ENCOUNTER 2025-02-28 06:00 | Outpatient (RCR) | payer MEDICARE, MEDICAID, SELFPAY | END 2025-03-30 23:59 | disposition home or self-care (01) | LOC: SPO 06:00 | PROVIDERS: Visit Provider Internal Medicine | DX: G81.11 Spastic hemiplegia affecting right dominant side (principal) | CPT/HCPCS: 97110 ==

== ENCOUNTER → 2025-03-29 13:19 | Outpatient (BNVA) | payer MEDICARE, MEDICAID, SELFPAY | PROVIDERS: Visit Provider Specialist | DX: G81.11 Spastic hemiplegia affecting right dominant side (principal) | CPT/HCPCS: 64644; J0585; J9999 ==

== ENCOUNTER 2025-03-31 05:00 | Outpatient (RCR) | payer MEDICARE, MEDICAID, SELFPAY | END 2025-04-29 23:59 | disposition home or self-care (01) | LOC: SPO 05:00 | PROVIDERS: Visit Provider Internal Medicine | DX: G81.11 Spastic hemiplegia affecting right dominant side (principal) | CPT/HCPCS: 97110 ==

== ENCOUNTER 2025-04-30 05:00 | Outpatient (RCR) | payer MEDICARE, MEDICAID, SELFPAY | END 2025-05-30 23:59 | disposition home or self-care (01) | LOC: SPO 05:00 | PROVIDERS: Visit Provider Internal Medicine | DX: G81.11 Spastic hemiplegia affecting right dominant side (principal) | CPT/HCPCS: 97110 ==

== ENCOUNTER 2025-05-31 05:00 | Outpatient (RCR) | payer MEDICARE, MEDICAID, SELFPAY | END 2025-06-30 23:59 | disposition home or self-care (01) | LOC: SPO 05:00 | PROVIDERS: Visit Provider Internal Medicine | DX: G81.11 Spastic hemiplegia affecting right dominant side (principal) | CPT/HCPCS: 97110; 97168; 97530 ==

== ENCOUNTER 2025-07-01 05:00 | Outpatient (RCR) | payer MEDICARE, MEDICAID, SELFPAY | END 2025-07-30 23:59 | disposition home or self-care (01) | LOC: SPO 05:00 | PROVIDERS: Visit Provider Internal Medicine | DX: G81.11 Spastic hemiplegia affecting right dominant side (principal) | CPT/HCPCS: 97110 ==

== ENCOUNTER → 2025-07-04 11:52 | Outpatient (BNVA) | payer MEDICARE, MEDICAID, SELFPAY | PROVIDERS: Visit Provider Specialist | DX: G81.11 Spastic hemiplegia affecting right dominant side (principal) | CPT/HCPCS: 64644; J0585; J9999 ==

== ENCOUNTER 2025-07-31 05:00 | Outpatient (RCR) | payer MEDICARE, MEDICAID, SELFPAY | END 2025-08-30 23:59 | disposition home or self-care (01) | LOC: SPO 05:00 | PROVIDERS: Visit Provider Internal Medicine | DX: G81.11 Spastic hemiplegia affecting right dominant side (principal) | CPT/HCPCS: 97110 ==

== ENCOUNTER 2025-08-31 05:00 | Outpatient (RCR) | payer MEDICARE, MEDICAID, SELFPAY | END 2025-09-29 23:59 | disposition home or self-care (01) | LOC: SPO 05:00 | PROVIDERS: Visit Provider Internal Medicine | DX: G81.11 Spastic hemiplegia affecting right dominant side (principal) | CPT/HCPCS: 97110 ==

== ENCOUNTER 2025-09-30 05:00 | Outpatient (RCR) | payer MEDICARE, MEDICAID, SELFPAY | END 2025-10-30 23:59 | disposition home or self-care (01) | LOC: SPO 05:00 | PROVIDERS: Visit Provider Internal Medicine | DX: G81.11 Spastic hemiplegia affecting right dominant side (principal) | CPT/HCPCS: 97110 ==